=== PATIENT | male | born 1955 | race Caucasian/White ===

== ENCOUNTER 2022-11-16 11:07 | Inpatient (IN) | payer MEDICARE, BC, OTHER ==
[2022-11-16] VITALS (17 sets, daily range): BP systolic 88–140; BP diastolic 45–73
[~2022-11-16] VITALS: Ht 170.2 cm; Wt 97.1 kg
[2022-11-16] MEDS ORDERED: NORepinephrine 8mg/ 250ml NS 250 ML IV ONE (11:16)
[2022-11-16] MEDS ORDERED: NORepinephrine 8mg/ 250ml NS 250 ML IV PRN ×2 (11:25→13:20)
[2022-11-16] MEDS ORDERED: fentaNYL/PF 50MCG/1 ML 2ML syringe IV PRN (11:25)
[2022-11-16] MEDS ORDERED: midazolam 100mg in NS 100ml 100 ML IV PRN ×2 (11:25→11:33)
[2022-11-16] MEDS ORDERED: FENTANYL-0.9 % NACL/PF 100 ML IV PRN (11:25)
[2022-11-16] MEDS ORDERED: midazolam 1 mg/ML 2ml injection IV ONE (11:25)
[2022-11-16] MEDS: FENTANYL-0.9 % NACL/PF 100 ML IV PRN ×2 (12:34→22:27)
[2022-11-16 12:41] LABS: ABG BASE EXCESS -11.7 mmol/L (-2.0-2.0); ABG HCO3 15.7 mmol/L (22.0-26.0); ABG PCO2 (T) 40.8 mmHg (35.0-48.0); ABG PO2 (T) 77.6 mmHg (75.0-100.0); FCOHb 0.5 % (0.0-3.9); FMetHb 0.2 % (0.0-1.5); FO2Hb 93.3 % (94-97); PATIENT TEMPERATURE 36.8; PEEP 12 cm H2O; RESPIRATORY RATE 26 b/min; TIDAL VOLUME 525 mL; TOTAL HEMOGLOBIN 13.7 G/dl (14.0-17.9)
[2022-11-16] MEDS ORDERED: mag hydrox/Alum hydrox/simeth 30ml oral suspension PO PRN (12:50)
[2022-11-16] MEDS ORDERED: magnesium Cl slow-release 64mg tablet PO PRN (12:50)
[2022-11-16] MEDS ORDERED: potassium Cl 40MEQ/1/2NS 520ml 520 ML IV PRN (12:50)
[2022-11-16] MEDS ORDERED: magnesium 4gm in 100ml NS 100 ML IV PRN (12:50)
[2022-11-16] MEDS ORDERED: magnesium hydroxide 30ml (MOM) UD suspension PO PRN (12:50)
[2022-11-16] MEDS ORDERED: potassium Cl 20 mEq SR tablet PO PRN ×2 (12:50)
[2022-11-16] MEDS ORDERED: acetaminophen 325mg tablet PO PRN (12:50)
[2022-11-16] MEDS ORDERED: ondansetron/PF 4mg/2ml inj IV PRN (12:50)
[2022-11-16] MEDS ORDERED: heparin 10,000 units/1 ML INJ IV PRN (13:00)
[2022-11-16] MEDS ORDERED: heparin 25,000 UNIT/250ml bag 250 ML IV PRN ×2 (13:00→13:28)
[2022-11-16] MEDS ORDERED: heparin 10,000 units/1 ML INJ IV ONE (13:00)
[2022-11-16] MEDS ORDERED: VANCOmycin 2,000MG in NS 500ml IV soln IV ONE (13:30)
[2022-11-16 13:38] LABS: BASOPHILS % (AUTO) 0.1 % (0-1); EOSINOPHILS % (AUTO) 0 % (0-6); HEMATOCRIT 40.2 % (42.0-52.0); HEMOGLOBIN 12.6 g/dl (14.0-17.9); LYMPHOCYTES # (AUTO) 0.9 X10'3 (1.1-4.8); MEAN CORPUSCULAR HEMOGLOBIN 29.3 PG (27.0-31.0); MEAN CORPUSCULAR HGB CONC 31.4 g/dL (33.0-36.5); MEAN CORPUSCULAR VOLUME 93.5 FL (78-98); MEAN PLATELET VOLUME 8.5 FL (7.4-10.4); MONOCYTES # (AUTO) 1.5 X10'3 (0-0.9); MONOCYTES % (AUTO) 3.4 % (2-12); NEUTROPHILS % (AUTO) 94.5 % (42-75); PLATELET COUNT 278 X10'3 (140-440); RED CELL DISTRIBUTION WIDTH 14.8 % (11.5-14.5)
[2022-11-16 13:53] LABS: CREATININE 3.12 MG/DL (0.60-1.10); eGFR 20 ML/MIN
--- NOTE | 2022-11-16 14:00 | NUR ---
Patient in room CICU 2016. I have received report from Vernell BOJORQUEZ and had the opportunity to ask questions and assume patient care.
[2022-11-16 14:02] LABS: WHITE BLOOD COUNT 43.4 X10'3 (4.5-11.0)
[2022-11-16 14:07] LABS: ALANINE AMINOTRANSFERASE 103 U/L (12-78); ALBUMIN 3.1 G/DL (3.4-5.0); ALBUMIN/GLOBULIN RATIO 0.8 (1.1-1.5); ALKALINE PHOSPHATASE 125 IU/L (46-116); ANION GAP 17 (8-16); ASPARTATE AMINO TRANSFERASE 244 U/L (10-37); BILIRUBIN,TOTAL 0.6 MG/DL (0.1-1.0); BLOOD UREA NITROGEN 51 MG/DL (7-18); BUN/CREATININE RATIO 16.4 (5.4-32.0); CALCIUM 8.2 MG/DL (8.5-10.1); CHLORIDE 105 MMOL/L (99-107); CREATININE 3.11 MG/DL (0.60-1.10); GLUCOSE 206 MG/DL (70-104); SODIUM 142 MMOL/L (135-145); TOTAL CARBON DIOXIDE 20.4 MMOL/L (24-32); TOTAL PROTEIN 7.1 G/DL (6.4-8.2); eGFR 20 ML/MIN
[2022-11-16 14:11] LABS: APTT 33 SECONDS (22-32); D-DIMER 15.02 MG/L FEU (0-0.50)
[2022-11-16 14:44] LABS: TOTAL CELLS COUNTED 100
[2022-11-16 14:47] LABS: PLATELET ESTIMATE NORMAL
[2022-11-16] MEDS ORDERED: APIX5TAB3 PO (15:12)
[2022-11-16] MEDS ORDERED: AMIO200T27 PO (15:12)
[2022-11-16] MEDS ORDERED: SERT-434 PO (15:12)
[2022-11-16] MEDS ORDERED: METO50TA17 PO (15:12)
[2022-11-16] MEDS ORDERED: ASPI-611 PO (15:12)
[2022-11-16] MEDS ORDERED: AZIT500V18 IV (15:12)
[2022-11-16] MEDS ORDERED: ATOR40TA71 PO (15:12)
[2022-11-16] MEDS ORDERED: VANC1PIG (15:12)
[2022-11-16] MEDS ORDERED: CEFE2FRO IV (15:12)
[2022-11-16] MEDS ORDERED: FURO-150 PO (15:16)
[2022-11-16] MEDS: SODIUM BICARB 150mEq/D5W 1L 1,000 ML IV SCH (15:23)
[2022-11-16] MEDS ORDERED: DILT120C94 PO (15:27)
[2022-11-16] MEDS ORDERED: DILT5VIA IVP (15:27)
[2022-11-16] MEDS ORDERED: [UNRECOGNIZED DRUG - CODE] IV (15:27)
[2022-11-16] MEDS ORDERED: EPINEPHRINE (15:27)
[2022-11-16] MEDS ORDERED: DEXTROSE (15:27)
[2022-11-16 15:28] LABS: CLARITY,URINE CLOUDY (Clear); COLOR,URINE YELLOW (Yellow); GLUCOSE, URINE 100 mg/dl (Neg); KETONES,URINE TRACE mg/dl (Neg); LEUKOCYTE ESTERASE ,URINE NEGATIVE (Neg); NITRITES, URINE NEGATIVE (Neg); OCCULT BLOOD,URINE LARGE (Neg); PROTEIN,URINE 100 mg/dl (Neg); UROBILINOGEN,URINE 0.2 E.U/dL (0.2-1.0)
[2022-11-16] MEDS ORDERED: vancomycin (15:29)
[2022-11-16] MEDS ORDERED: NORE4PLA (15:30)
[2022-11-16] MEDS ORDERED: MIDA1PLA (15:31)
[2022-11-16] MEDS ORDERED: [UNRECOGNIZED DRUG - CODE] IVP (15:32)
[2022-11-16] MEDS ORDERED: ONDA4DIS4 IVP (15:34)
[2022-11-16 15:51] LABS: UA COLLECTION TYPE FOLEY CATH
[2022-11-16 15:54] LABS: RBC,URINE 50-100 /HPF (0-2)
[2022-11-16 15:55] LABS: BACTERIA,URINE 2+ /HPF (Neg); SQUAMOUS EPITHELIAL CELL,UR NONE SEEN /LPF (FEW)
[2022-11-16 15:56] LABS: AMORPHOUS URATES 2+
[2022-11-16] MEDS: pantoprazole 40MG/NS 100ML BAG 100 ML IV SCH (16:17)
[2022-11-16] MEDS: piperacillin/tazo 3.375gm/50ml 50 ML IV SCH (16:17)
[2022-11-16] MEDS: heparin, porcine 5000 units/ml vial SQ SCH (16:17)
[2022-11-16 16:21] LABS: ABG BASE EXCESS -9.4 mmol/L (-2.0-2.0); ABG OXYGEN SATURATION 94.8 % (94-97); ABG PCO2 (T) 38.8 mmHg (35.0-48.0); ABG PO2 (T) 75.1 mmHg (75.0-100.0); FCOHb 0.3 % (0.0-3.9); FMetHb 0.2 % (0.0-1.5); FO2Hb 94.3 % (94-97); PEEP 12 cm H2O; RESPIRATORY RATE 24 b/min; TOTAL HEMOGLOBIN 12.2 G/dl (14.0-17.9)
--- NOTE | 2022-11-16 16:58 | NUR ---
Informed Dr. Peters regarding WBC 43.4, DDimer 15.02, lactic 4.9. No new orders at this time.
--- NOTE | 2022-11-16 17:30 | NUR ---
Luis E Cowan updated over the phone.
--- NOTE | 2022-11-16 18:13 | NUR ---
Problems reprioritized. Patient report given, questions answered & plan of care reviewed with Natalia BOJORQUEZ.
--- NOTE | 2022-11-16 18:30 | NUR ---
I have received report and assumed care of an 67 year old male who was admitted post code blue at an outside facility, thus transferred here. Pt has a relevant medical history including but not limited to stage 3 kidney disease, Afib, CAD, CHF, Covid 19 and a Diabetic. Pt had a PPM placed nearly a week ago. Neurologically the pt is not following commands, does cough/ gag with et suctioning. Left eye is dilated to a 5 rt eye a 2. does not have a startle reflex , pt is on Levophed to keep MAP greater then 60, fentanyl in place for pain control. vasoactive meds via CVL
[2022-11-16 19:58] LABS: OXYGEN SATURATION (MIXED VEN) 86.8 % (60-80); PO2 MIXED VENOUS (TEMP COR) 52.2 mmHg (35-46)
[2022-11-16] MEDS: docusate sod 100mg capsule PO SCH (20:00)
[2022-11-16 20:04] LABS: ABG BASE EXCESS -6.8 mmol/L (-2.0-2.0); ABG HCO3 19.7 mmol/L (22.0-26.0); ABG PCO2 (T) 43.8 mmHg (35.0-48.0); ABG PO2 (T) 87.5 mmHg (75.0-100.0); FCOHb 0.3 % (0.0-3.9); FMetHb 0.2 % (0.0-1.5); FO2Hb 95.5 % (94-97); PATIENT TEMPERATURE 37.3; PEEP 12 cm H2O; RESPIRATORY RATE 24 b/min; TIDAL VOLUME 475 mL; TOTAL HEMOGLOBIN 11.9 G/dl (14.0-17.9)
[2022-11-16 20:05] LABS: BASOPHILS % (AUTO) 0.1 % (0-1); EOSINOPHILS % (AUTO) 0 % (0-6); HEMATOCRIT 34.1 % (42.0-52.0); LYMPHOCYTES # (AUTO) 1.4 X10'3 (1.1-4.8); LYMPHOCYTES % (AUTO) 3.8 % (21-51); MEAN CORPUSCULAR HEMOGLOBIN 29.3 PG (27.0-31.0); MEAN CORPUSCULAR HGB CONC 32.1 g/dL (33.0-36.5); MEAN CORPUSCULAR VOLUME 91.2 FL (78-98); MEAN PLATELET VOLUME 8.5 FL (7.4-10.4); MONOCYTES # (AUTO) 0.8 X10'3 (0-0.9); MONOCYTES % (AUTO) 2.3 % (2-12); NEUTROPHILS # (AUTO) 34.3 X10'3 (1.8-7.7); NEUTROPHILS % (AUTO) 93.8 % (42-75); PLATELET COUNT 231 X10'3 (140-440); RED BLOOD COUNT 3.74 X10'6 (4.70-6.10)
[2022-11-16 20:06] LABS: WHITE BLOOD COUNT 36.6 X10'3 (4.5-11.0)
[2022-11-16 20:19] LABS: ALANINE AMINOTRANSFERASE 96 U/L (12-78); ALBUMIN 2.7 G/DL (3.4-5.0); ALBUMIN/GLOBULIN RATIO 0.7 (1.1-1.5); ALKALINE PHOSPHATASE 94 IU/L (46-116); ANION GAP 14 (8-16); ASPARTATE AMINO TRANSFERASE 195 U/L (10-37); BILIRUBIN,TOTAL 0.6 MG/DL (0.1-1.0); BLOOD UREA NITROGEN 58 MG/DL (7-18); BUN/CREATININE RATIO 17.2 (5.4-32.0); CALCIUM 7.7 MG/DL (8.5-10.1); CHLORIDE 106 MMOL/L (99-107); CREATININE 3.37 MG/DL (0.60-1.10); GLUCOSE 242 MG/DL (70-104); POTASSIUM 5.6 MMOL/L (3.5-5.1); SODIUM 140 MMOL/L (135-145); TOTAL CARBON DIOXIDE 20.5 MMOL/L (24-32); TOTAL PROTEIN 6.4 G/DL (6.4-8.2); eGFR 18 ML/MIN
[2022-11-16] MEDS: apixaban 5mg tablet PO SCH (20:19)
[2022-11-16 20:21] LABS: MAGNESIUM 1.9 MG/DL (1.5-2.4); PHOSPHORUS 6.2 MG/DL (2.3-4.5)
[2022-11-16] MEDS: K and/or MAG REPLACEMENT MC SCH (20:29)
[2022-11-16 20:32] LABS: PLATELET ESTIMATE NORMAL; TOTAL CELLS COUNTED 100
--- NOTE | 2022-11-16 23:05 | NUR ---
Spoke to Dr Peters regarding pts increase in Potassium, low urine output new orders to increase bicarb
[2022-11-16] MEDS ORDERED: glucagon, human recombinant 1mg kit SUBCUT PRN (23:35)
[2022-11-16] MEDS ORDERED: MESSAGE TO PHARMACY PO ONE (23:35)
[2022-11-16] MEDS ORDERED: dextrose 50%-water 50ml dispensing syringe IV PRN ×2 (23:35)
[2022-11-16] MEDS ORDERED: DEXTROSE 15 GM of carb/4 tabs (each vial/BOTTLE has 4 tablets) PO PRN ×2 (23:35)
[2022-11-16 23:54] LABS: HEMOGLOBIN A1C 6.7 % (4.5-6.2)
[2022-11-17] VITALS (35 sets, daily range): BP systolic 93–145; BP diastolic 42–67
[2022-11-17] MEDS: piperacillin/tazo 3.375gm/50ml 50 ML IV SCH ×4 (01:03→23:34)
[2022-11-17] MEDS: heparin, porcine 5000 units/ml vial SQ SCH ×2 (01:03→08:21)
[2022-11-17] MEDS: SODIUM BICARB 150mEq/D5W 1L 1,000 ML IV SCH ×4 (01:03→19:19)
[2022-11-17] MEDS: insulin Lispro (HumaLOG) vial - multi-dose SQ SCH ×4 (02:07→20:07)
[2022-11-17 02:37] LABS: BASOPHILS % (AUTO) 0.1 % (0-1); EOSINOPHILS % (AUTO) 0 % (0-6); HEMATOCRIT 31.5 % (42.0-52.0); HEMOGLOBIN 10.1 g/dl (14.0-17.9); LYMPHOCYTES # (AUTO) 1.5 X10'3 (1.1-4.8); LYMPHOCYTES % (AUTO) 5.3 % (21-51); MEAN CORPUSCULAR HEMOGLOBIN 29.1 PG (27.0-31.0); MEAN CORPUSCULAR VOLUME 90.9 FL (78-98); MEAN PLATELET VOLUME 8.7 FL (7.4-10.4); MONOCYTES # (AUTO) 1.1 X10'3 (0-0.9); MONOCYTES % (AUTO) 3.8 % (2-12); NEUTROPHILS # (AUTO) 26.4 X10'3 (1.8-7.7); NEUTROPHILS % (AUTO) 90.8 % (42-75); PLATELET COUNT 208 X10'3 (140-440); RED BLOOD COUNT 3.46 X10'6 (4.70-6.10); RED CELL DISTRIBUTION WIDTH 14.2 % (11.5-14.5)
[2022-11-17 02:43] LABS: WHITE BLOOD COUNT 29.1 X10'3 (4.5-11.0)
[2022-11-17 03:02] LABS: ALANINE AMINOTRANSFERASE 84 U/L (12-78); ALBUMIN 2.5 G/DL (3.4-5.0); ALBUMIN/GLOBULIN RATIO 0.7 (1.1-1.5); ALKALINE PHOSPHATASE 81 IU/L (46-116); ANION GAP 11 (8-16); ASPARTATE AMINO TRANSFERASE 147 U/L (10-37); BILIRUBIN,TOTAL 0.6 MG/DL (0.1-1.0); BLOOD UREA NITROGEN 62 MG/DL (7-18); BUN/CREATININE RATIO 16.9 (5.4-32.0); CALCIUM 7.6 MG/DL (8.5-10.1); CHLORIDE 105 MMOL/L (99-107); CREATININE 3.66 MG/DL (0.60-1.10); GLUCOSE 253 MG/DL (70-104); MAGNESIUM 1.8 MG/DL (1.5-2.4); PHOSPHORUS 5.9 MG/DL (2.3-4.5); POTASSIUM 4.8 MMOL/L (3.5-5.1); SODIUM 141 MMOL/L (135-145); TOTAL CARBON DIOXIDE 24.8 MMOL/L (24-32); eGFR 17 ML/MIN
[2022-11-17 03:34] LABS: ABG BASE EXCESS -2.1 mmol/L (-2.0-2.0); ABG HCO3 23.5 mmol/L (22.0-26.0); ABG OXYGEN SATURATION 97.7 % (94-97); ABG PCO2 (T) 44.4 mmHg (35.0-48.0); ABG PO2 (T) 110.4 mmHg (75.0-100.0); FCOHb 0.3 % (0.0-3.9); FMetHb 0.2 % (0.0-1.5); FO2Hb 97.2 % (94-97); PATIENT TEMPERATURE 37.4; PEEP 12 cm H2O; RESPIRATORY RATE 24 b/min; TIDAL VOLUME 475 mL; TOTAL HEMOGLOBIN 10.7 G/dl (14.0-17.9)
[2022-11-17] MEDS: FENTANYL-0.9 % NACL/PF 100 ML IV PRN ×4 (05:10→22:42)
--- NOTE | 2022-11-17 06:00 | NUR ---
Patient in room CICU 2014. I have received report from Natalia BOJORQUEZ and had the opportunity to ask questions and assume patient care.
[2022-11-17] MEDS: docusate sod 100mg capsule PO SCH ×2 (07:45→20:00)
[2022-11-17] MEDS: K and/or MAG REPLACEMENT MC SCH ×2 (07:45→20:00)
[2022-11-17] MEDS: sertraline 50mg tablet PO SCH (07:45)
[2022-11-17] MEDS: aspirin 81mg, enteric-coated 1 TAB TABLET.DR PO SCH (07:45)
[2022-11-17] MEDS: atorvastatin 20mg tablet PO SCH (07:45)
[2022-11-17] MEDS: pantoprazole 40MG/NS 100ML BAG 100 ML IV SCH (08:20)
[2022-11-17] MEDS: apixaban 5mg tablet PO SCH ×2 (08:21→20:01)
[2022-11-17] MEDS: amiodarone 200mg tablet PO SCH (08:21)
--- NOTE | 2022-11-17 11:23 | NUR ---
Initial: Pt intubated, transferred from [facility] s/p code blue. Per MD at [facility] pt with sepsis and PNA. Pt with an OGT in place, currently on suction per RN at [facility]. No TF consult at this time, TF recs below for if expected prolonged intubation and to receive nutrition support. LBM unknown. Pt with routine and PRN bowel care available, currently held d/t NPO status. Noted pt with a low Paolo of 11, per EMR no edema and skin is intact. Will continue to follow closely and make recommendations as appropriate. Recommendations: 1) IF TF, continuous Pivot 1.5 with 80 mL/hr goal rate to provide 1920 mL volume/day, 2880 kcal, 180 g protein, and 1457 mL water. Begin at 20 mL/hr and advance by 20 mL Q8H as tolerated to goal rate 2) IF TF, additional water flush per MD in view of h/o CKD III and CHF; monitor serum Na 3) IF TF, prealbumin q Wednesday/; daily scaled weights 4) Routine bowel care Addendum: 11/17/22 at [address] Amended: Links added.
[2022-11-17] MEDS ORDERED: VANCOMYCIN 750MG IV in NS 250 ML IV SCH (14:00)
[2022-11-17] MEDS: mineral oil/petrolatum ophthal oint EACHEYE SCH ×2 (14:10→20:00)
[2022-11-17] MEDS: vancomycin inj 500 MG in normal saline 100ml IV soln 100 ML IV SCH (14:10)
--- NOTE | 2022-11-17 14:54 | NUR ---
Sputum C&S obtained and sent to lab Addendum: 11/17/22 at 1455 by Monika Gonzales RT Amended: Links added.
--- NOTE | 2022-11-17 18:23 | NUR ---
Problems reprioritized. Patient report given, questions answered & plan of care reviewed with Felicity BOJORQUEZ.
--- NOTE | 2022-11-17 18:30 | NUR ---
Patient in room CICU 2014. I have received report from Lyric BOJORQUEZ and had the opportunity to ask questions and assume patient care.
[2022-11-17] MEDS: insulin glargine (Lantus) pen - multi-dose SQ SCH (20:07)
[2022-11-17] MEDS: propofol 1000mg/100ml bottle 100 ML IV SCH (20:58)
[2022-11-17] MEDS: fentaNYL 50mcg/ml PF inj. 2,500 MCG in normal saline 250ml IV soln 200 ML IV SCH (23:55)
[2022-11-18] VITALS (34 sets, daily range): BP systolic 113–140; BP diastolic 50–70
[2022-11-18] MEDS: SODIUM BICARB 150mEq/D5W 1L 1,000 ML IV SCH (01:33)
[2022-11-18] MEDS: mineral oil/petrolatum ophthal oint EACHEYE SCH ×4 (02:12→19:15)
[2022-11-18] MEDS: insulin Lispro (HumaLOG) vial - multi-dose SQ SCH ×3 (02:12→20:14)
[2022-11-18 02:45] LABS: BASOPHILS % (AUTO) 0.1 % (0-1); EOSINOPHILS % (AUTO) 0 % (0-6); HEMATOCRIT 25.4 % (42.0-52.0); HEMOGLOBIN 8.3 g/dl (14.0-17.9); LYMPHOCYTES % (AUTO) 6.1 % (21-51); MEAN CORPUSCULAR HEMOGLOBIN 29.4 PG (27.0-31.0); MEAN CORPUSCULAR HGB CONC 32.7 g/dL (33.0-36.5); MEAN CORPUSCULAR VOLUME 89.9 FL (78-98); MONOCYTES # (AUTO) 0.9 X10'3 (0-0.9); MONOCYTES % (AUTO) 5.7 % (2-12); NEUTROPHILS # (AUTO) 13.8 X10'3 (1.8-7.7); NEUTROPHILS % (AUTO) 88.1 % (42-75); PLATELET COUNT 141 X10'3 (140-440); RED BLOOD COUNT 2.83 X10'6 (4.70-6.10); WHITE BLOOD COUNT 15.7 X10'3 (4.5-11.0)
[2022-11-18 03:08] LABS: ALANINE AMINOTRANSFERASE 99 U/L (12-78); ALBUMIN 2.3 G/DL (3.4-5.0); ALBUMIN/GLOBULIN RATIO 0.7 (1.1-1.5); ALKALINE PHOSPHATASE 59 IU/L (46-116); ANION GAP 7 (8-16); ASPARTATE AMINO TRANSFERASE 94 U/L (10-37); BILIRUBIN,TOTAL 0.9 MG/DL (0.1-1.0); BLOOD UREA NITROGEN 65 MG/DL (7-18); BUN/CREATININE RATIO 15.6 (5.4-32.0); CHLORIDE 102 MMOL/L (99-107); CREATININE 4.17 MG/DL (0.60-1.10); GLUCOSE 180 MG/DL (70-104); MAGNESIUM 1.8 MG/DL (1.5-2.4); PHOSPHORUS 3.5 MG/DL (2.3-4.5); POTASSIUM 3.2 MMOL/L (3.5-5.1); SODIUM 143 MMOL/L (135-145); TOTAL CARBON DIOXIDE 33.7 MMOL/L (24-32); TOTAL PROTEIN 5.7 G/DL (6.4-8.2); TRIGLYCERIDES 84 MG/DL (20-135); eGFR 14 ML/MIN
[2022-11-18 03:45] LABS: ABG BASE EXCESS 6.2 mmol/L (-2.0-2.0); ABG HCO3 28.7 mmol/L (22.0-26.0); ABG OXYGEN SATURATION 93.9 % (94-97); ABG PCO2 (T) 33.7 mmHg (35.0-48.0); ABG PO2 (T) 68.9 mmHg (75.0-100.0); FCOHb 0.3 % (0.0-3.9); FO2Hb 93.6 % (94-97); PATIENT TEMPERATURE 37.2; PEEP 8 cm H2O; RESPIRATORY RATE 24 b/min; TIDAL VOLUME 475 mL; TOTAL HEMOGLOBIN 9.4 G/dl (14.0-17.9)
[2022-11-18] MEDS: fentaNYL 50mcg/ml PF inj. 2,500 MCG in normal saline 250ml IV soln 200 ML IV SCH ×2 (04:44→17:18)
--- NOTE | 2022-11-18 06:20 | NUR ---
Problems reprioritized. Patient report given, questions answered & plan of care reviewed with Annika BOJORQUEZ.
[2022-11-18] MEDS: K and/or MAG REPLACEMENT MC SCH ×2 (08:00→20:00)
[2022-11-18] MEDS: docusate sod 100mg capsule PO SCH (08:00)
[2022-11-18] MEDS: pantoprazole 40MG/NS 100ML BAG 100 ML IV SCH (12:04)
[2022-11-18] MEDS: piperacillin/tazo 3.375gm/50ml 50 ML IV SCH ×3 (12:04→23:24)
[2022-11-18] MEDS: apixaban 5mg tablet PO SCH (12:06)
[2022-11-18] MEDS: aspirin 81mg, enteric-coated 1 TAB TABLET.DR PO SCH (12:06)
[2022-11-18] MEDS: sertraline 50mg tablet PO SCH (12:06)
[2022-11-18] MEDS: amiodarone 200mg tablet PO SCH (12:06)
[2022-11-18] MEDS: atorvastatin 20mg tablet PO SCH (12:06)
[2022-11-18] MEDS: propofol 1000mg/100ml bottle 100 ML IV SCH (12:22)
[2022-11-18 12:47] LABS: TOTAL PROTEIN,URINE RANDOM 86.1 MG/DL
[2022-11-18 13:10] LABS: CLARITY,URINE SLIGHTLY CLOUDY (Clear); COLOR,URINE YELLOW (Yellow); GLUCOSE, URINE NEGATIVE (Neg); KETONES,URINE NEGATIVE (Neg); LEUKOCYTE ESTERASE ,URINE NEGATIVE (Neg); NITRITES, URINE NEGATIVE (Neg); OCCULT BLOOD,URINE MODERATE (Neg); PH,URINE 7.5 (4.8-8.0); PROTEIN,URINE 30 mg/dl (Neg); UROBILINOGEN,URINE 0.2 E.U/dL (0.2-1.0)
--- NOTE | 2022-11-18 13:44 | NUR ---
TF consult: Pt remains intubated, to begin TF per MD. Propofol visualized at bedside to be running at 3.45 mL/hr providing 91 kcal/day, TF recs have been adjusted accordingly. MD states he's okay with water flushes at this time. Will continue to follow closely. Recommendations: 1) Continuous Pivot 1.5 with 80 mL/hr goal rate to provide 1920 mL volume/day, 2880 kcal, 180 g protein, and 1457 mL water 2) Monitor Propofol rate and need to adjust recs 3) Additional 150 mL water flush Q4H; monitor serum Na 4) Prealbumin q Wednesday/; daily scaled weights 5) Routine bowel care Addendum: 11/18/22 at [address] Amended: Links added.
[2022-11-18 14:08] LABS: UA COLLECTION TYPE FOLEY CATH
[2022-11-18 14:15] LABS: BACTERIA,URINE 1+ /HPF (Neg); SQUAMOUS EPITHELIAL CELL,UR FEW /LPF (FEW); WBC CASTS 0-3 /LPF (NEGATIVE); WBC CLUMPS,URINE FEW /HPF (NEGATIVE)
[2022-11-18] MEDS: vancomycin inj 500 MG in normal saline 100ml IV soln 100 ML IV SCH (14:34)
[2022-11-18 15:44] LABS: UA EOSINOPHILS NO EOS /HPF
[2022-11-18] MEDS ORDERED: amiodarone 200mg tablet OGT SCH (16:27)
[2022-11-18] MEDS ORDERED: DEXTROSE 15 GM of carb/4 tabs (each vial/BOTTLE has 4 tablets) OGT PRN ×2 (16:28)
[2022-11-18] MEDS ORDERED: mag hydrox/Alum hydrox/simeth 30ml oral suspension OGT PRN (16:28)
[2022-11-18] MEDS ORDERED: POTASSIUM BICARB 20meq eff tab 20 MEQ TABLET.EFF OGT PRN ×2 (16:29)
[2022-11-18] MEDS ORDERED: magnesium hydroxide 30ml (MOM) UD suspension OGT PRN (16:29)
[2022-11-18] MEDS: apixaban 5mg tablet OGT SCH (19:16)
[2022-11-18] MEDS: docusate sodium 100mg/10ml UD cup OGT SCH (19:16)
[2022-11-18] MEDS: insulin glargine (Lantus) pen - multi-dose SQ SCH (20:14)
[2022-11-19] VITALS (35 sets, daily range): BP systolic 121–177; BP diastolic 64–102
[2022-11-19] MEDS: propofol 1000mg/100ml bottle 100 ML IV SCH (01:09)
[2022-11-19] MEDS: fentaNYL 50mcg/ml PF inj. 2,500 MCG in normal saline 250ml IV soln 200 ML IV SCH (01:10)
[2022-11-19] MEDS: insulin Lispro (HumaLOG) vial - multi-dose SQ SCH (02:14)
[2022-11-19] MEDS: mineral oil/petrolatum ophthal oint EACHEYE SCH ×4 (02:15→20:25)
[2022-11-19 02:40] LABS: HEMATOCRIT 27.3 % (42.0-52.0); HEMOGLOBIN 8.9 g/dl (14.0-17.9); RED CELL DISTRIBUTION WIDTH 14.1 % (11.5-14.5)
[2022-11-19 02:43] LABS: BASOPHILS % (AUTO) 0.1 % (0-1); EOSINOPHILS % (AUTO) 0.2 % (0-6); LYMPHOCYTES # (AUTO) 1.6 X10'3 (1.1-4.8); LYMPHOCYTES % (AUTO) 10.5 % (21-51); MEAN CORPUSCULAR HEMOGLOBIN 29.3 PG (27.0-31.0); MEAN CORPUSCULAR HGB CONC 32.6 g/dL (33.0-36.5); MEAN CORPUSCULAR VOLUME 89.9 FL (78-98); MEAN PLATELET VOLUME 9.1 FL (7.4-10.4); MONOCYTES % (AUTO) 6.8 % (2-12); NEUTROPHILS # (AUTO) 12.6 X10'3 (1.8-7.7); NEUTROPHILS % (AUTO) 82.4 % (42-75); PLATELET COUNT 152 X10'3 (140-440); RED BLOOD COUNT 3.04 X10'6 (4.70-6.10); WHITE BLOOD COUNT 15.3 X10'3 (4.5-11.0)
[2022-11-19 02:57] LABS: ALANINE AMINOTRANSFERASE 88 U/L (12-78); ALBUMIN 2.4 G/DL (3.4-5.0); ALBUMIN/GLOBULIN RATIO 0.7 (1.1-1.5); ALKALINE PHOSPHATASE 62 IU/L (46-116); ANION GAP 11 (8-16); ASPARTATE AMINO TRANSFERASE 82 U/L (10-37); BILIRUBIN,TOTAL 0.8 MG/DL (0.1-1.0); BLOOD UREA NITROGEN 68 MG/DL (7-18); BUN/CREATININE RATIO 16.1 (5.4-32.0); CALCIUM 8.3 MG/DL (8.5-10.1); CHLORIDE 103 MMOL/L (99-107); CREATININE 4.22 MG/DL (0.60-1.10); GLUCOSE 141 MG/DL (70-104); PHOSPHORUS 5.4 MG/DL (2.3-4.5); POTASSIUM 3.5 MMOL/L (3.5-5.1); PREALBUMIN 16.2 MG/DL (19-36); SODIUM 146 MMOL/L (135-145); TOTAL CARBON DIOXIDE 32.4 MMOL/L (24-32); TOTAL PROTEIN 5.9 G/DL (6.4-8.2); eGFR 14 ML/MIN
[2022-11-19 03:34] LABS: TOTAL CELLS COUNTED 100
[2022-11-19 03:35] LABS: PLATELET ESTIMATE NORMAL; POIKILOCYTOSIS FEW; POLYCHROMASIA FEW; SMUDGE CELLS FEW
[2022-11-19 03:54] LABS: ABG BASE EXCESS 5.1 mmol/L (-2.0-2.0); ABG HCO3 28.5 mmol/L (22.0-26.0); ABG OXYGEN SATURATION 93.5 % (94-97); ABG PCO2 (T) 36.8 mmHg (35.0-48.0); ABG PO2 (T) 67.1 mmHg (75.0-100.0); FCOHb 0.3 % (0.0-3.9); FO2Hb 93.2 % (94-97); PATIENT TEMPERATURE 36.9; PEEP 8 cm H2O; RESPIRATORY RATE 18 b/min; TIDAL VOLUME 475 mL; TOTAL HEMOGLOBIN 8.9 G/dl (14.0-17.9)
--- NOTE | 2022-11-19 06:15 | NUR ---
Problems reprioritized. Patient report given, questions answered & plan of care reviewed with Lj BOJORQUEZ.
[2022-11-19] MEDS: pantoprazole 40MG/NS 100ML BAG 100 ML IV SCH (07:47)
[2022-11-19] MEDS: K and/or MAG REPLACEMENT MC SCH ×2 (08:00→20:00)
[2022-11-19] MEDS: docusate sodium 100mg/10ml UD cup OGT SCH ×2 (08:14→20:18)
[2022-11-19] MEDS: aspirin 81mg tab.chew OGT SCH (08:14)
[2022-11-19] MEDS: apixaban 5mg tablet OGT SCH ×2 (08:14→20:18)
[2022-11-19] MEDS: piperacillin/tazo 3.375gm/50ml 50 ML IV SCH ×2 (08:14→16:29)
[2022-11-19] MEDS: atorvastatin 20mg tablet OGT SCH (08:14)
[2022-11-19] MEDS: sertraline 50mg tablet OGT SCH (08:15)
[2022-11-19] MEDS: hydrALAZINE 20mg/ml inj. IV PRN ×2 (08:51→18:03)
[2022-11-19] MEDS: insulin regular, human U-100 3ml vial - multi-dose SQ SCH ×3 (09:21→20:30)
[2022-11-19] MEDS: labetalol 20mg/4ml (5mg/ml) syringe IV PRN (09:35)
[2022-11-19] MEDS ORDERED: VANCOMYCIN LEVEL IV ONE (13:30)
[2022-11-19] MEDS: metolazone 2.5mg tablet OGT SCH ×2 (13:42→20:18)
[2022-11-19] MEDS: furosemide inj 100 MG in normal saline 100ml IV soln 90 ML IV SCH ×2 (13:53→22:10)
[2022-11-19] MEDS: vancomycin inj 500 MG in normal saline 100ml IV soln 100 ML IV SCH (14:05)
--- NOTE | 2022-11-19 15:06 | NUR ---
F/u: TF just started this morning, currently running at 20 mL/hr. Noted patient's ht changed to 67" in EMR which is likely more accurate given patient's presentation. TC to clinical pharmacist who confirms patient's ht and new weight was obtained. TF recs below have been adjusted accordingly as to not overfeed on the vent, updated EMR and d/w RN. Per EMR pt receiving Propofol at 6.9 mL/hr providing 182 kcal/day. Still no documented BM since admit. Pt receiving routine bowel care. Will continue to follow. Recommendations: 1) Given Propofol at 6.9 mL/hr (182 kcal/day) and product shortage of Vital HP, continuous Pivot 1.5 with 45 mL/hr goal rate to provide 1080 mL volume/day, 1620 kcal, 101 g protein, and 820 mL water 2) Monitor Propofol rate and need to adjust recs 3) Additional 150 mL water flush Q4H; monitor serum Na 4) Prealbumin q Wednesday/; daily scaled weights 5) Routine bowel care Addendum: 11/19/22 at [address] Amended: Links added.
--- NOTE | 2022-11-19 18:14 | NUR ---
Problems reprioritized. Patient report given, questions answered & plan of care reviewed with Sunshine BOJORQUEZ.
[2022-11-19 20:31] LABS: ALANINE AMINOTRANSFERASE 84 U/L (12-78); ALBUMIN 2.7 G/DL (3.4-5.0); ALBUMIN/GLOBULIN RATIO 0.6 (1.1-1.5); ALKALINE PHOSPHATASE 78 IU/L (46-116); ANION GAP 10 (8-16); ASPARTATE AMINO TRANSFERASE 71 U/L (10-37); BILIRUBIN,TOTAL 1.1 MG/DL (0.1-1.0); BLOOD UREA NITROGEN 71 MG/DL (7-18); BUN/CREATININE RATIO 17.3 (5.4-32.0); CALCIUM 8.6 MG/DL (8.5-10.1); CHLORIDE 102 MMOL/L (99-107); GLUCOSE 175 MG/DL (70-104); MAGNESIUM 2.1 MG/DL (1.5-2.4); PHOSPHORUS 5.6 MG/DL (2.3-4.5); POTASSIUM 3.5 MMOL/L (3.5-5.1); SODIUM 145 MMOL/L (135-145); TOTAL CARBON DIOXIDE 32.6 MMOL/L (24-32); TOTAL PROTEIN 6.9 G/DL (6.4-8.2); eGFR 15 ML/MIN
[2022-11-19] MEDS: insulin glargine (Lantus) pen - multi-dose SQ SCH (20:32)
[2022-11-20] VITALS (35 sets, daily range): BP systolic 113–171; BP diastolic 58–95
[2022-11-20] MEDS: piperacillin/tazo 3.375gm/50ml 50 ML IV SCH ×3 (01:46→16:39)
[2022-11-20 02:49] LABS: BASOPHILS % (AUTO) 0.1 % (0-1); EOSINOPHILS # (AUTO) 0.1 X10'3 (0-0.9); EOSINOPHILS % (AUTO) 0.3 % (0-6); HEMATOCRIT 32.4 % (42.0-52.0); HEMOGLOBIN 10.8 g/dl (14.0-17.9); LYMPHOCYTES # (AUTO) 1.4 X10'3 (1.1-4.8); LYMPHOCYTES % (AUTO) 8.1 % (21-51); MEAN CORPUSCULAR HEMOGLOBIN 30.2 PG (27.0-31.0); MEAN CORPUSCULAR HGB CONC 33.5 g/dL (33.0-36.5); MEAN CORPUSCULAR VOLUME 90.1 FL (78-98); MEAN PLATELET VOLUME 8.4 FL (7.4-10.4); MONOCYTES # (AUTO) 1.2 X10'3 (0-0.9); MONOCYTES % (AUTO) 7.3 % (2-12); NEUTROPHILS # (AUTO) 14.4 X10'3 (1.8-7.7); NEUTROPHILS % (AUTO) 84.2 % (42-75); PLATELET COUNT 211 X10'3 (140-440); RED BLOOD COUNT 3.59 X10'6 (4.70-6.10); RED CELL DISTRIBUTION WIDTH 14.1 % (11.5-14.5); WHITE BLOOD COUNT 17.1 X10'3 (4.5-11.0)
[2022-11-20] MEDS: amiodarone/D5 360MG/200ML BAG 200 ML IV SCH ×4 (02:55→21:07)
[2022-11-20] MEDS ORDERED: amiodarone 150mg/dext, iso-os 100 ML IV ONE (02:55)
[2022-11-20] MEDS: mineral oil/petrolatum ophthal oint EACHEYE SCH ×4 (02:57→19:50)
[2022-11-20 03:05] LABS: ALANINE AMINOTRANSFERASE 74 U/L (12-78); ALBUMIN 2.8 G/DL (3.4-5.0); ALBUMIN/GLOBULIN RATIO 0.7 (1.1-1.5); ALKALINE PHOSPHATASE 82 IU/L (46-116); ANION GAP 10 (8-16); ASPARTATE AMINO TRANSFERASE 65 U/L (10-37); BILIRUBIN,TOTAL 1.2 MG/DL (0.1-1.0); BLOOD UREA NITROGEN 73 MG/DL (7-18); CALCIUM 8.7 MG/DL (8.5-10.1); CHLORIDE 100 MMOL/L (99-107); CREATININE 4.05 MG/DL (0.60-1.10); GLUCOSE 175 MG/DL (70-104); MAGNESIUM 2.1 MG/DL (1.5-2.4); PHOSPHORUS 5.2 MG/DL (2.3-4.5); POTASSIUM 3.5 MMOL/L (3.5-5.1); SODIUM 145 MMOL/L (135-145); TOTAL CARBON DIOXIDE 35.4 MMOL/L (24-32); TOTAL PROTEIN 7.1 G/DL (6.4-8.2); TRIGLYCERIDES 117 MG/DL (20-135); eGFR 15 ML/MIN
[2022-11-20] MEDS: insulin regular, human U-100 3ml vial - multi-dose SQ SCH ×4 (03:10→20:33)
[2022-11-20] MEDS: propofol 1000mg/100ml bottle 100 ML IV SCH (03:57)
[2022-11-20 03:59] LABS: ABG BASE EXCESS 6.5 mmol/L (-2.0-2.0); ABG HCO3 31.5 mmol/L (22.0-26.0); ABG OXYGEN SATURATION 94.9 % (94-97); ABG PCO2 (T) 48.9 mmHg (35.0-48.0); ABG PO2 (T) 80.8 mmHg (75.0-100.0); ALLEN'S TEST Modified; FCOHb 0.6 % (0.0-3.9); FMetHb 0.1 % (0.0-1.5); FO2Hb 94.2 % (94-97); PATIENT TEMPERATURE 37.7; PEEP 8 cm H2O; RESPIRATORY RATE 16 b/min; TIDAL VOLUME 475 mL; TOTAL HEMOGLOBIN 12.1 G/dl (14.0-17.9)
[2022-11-20] MEDS: K and/or MAG REPLACEMENT MC SCH ×2 (08:00→20:05)
[2022-11-20] MEDS: pantoprazole 40MG/NS 100ML BAG 100 ML IV SCH (08:08)
[2022-11-20] MEDS: docusate sodium 100mg/10ml UD cup OGT SCH ×2 (08:11→19:51)
[2022-11-20] MEDS: aspirin 81mg tab.chew OGT SCH (08:11)
[2022-11-20] MEDS: sertraline 50mg tablet OGT SCH (08:11)
[2022-11-20] MEDS: atorvastatin 20mg tablet OGT SCH (08:12)
[2022-11-20] MEDS: apixaban 5mg tablet OGT SCH ×2 (08:12→19:51)
[2022-11-20 08:39] LABS: ALANINE AMINOTRANSFERASE 76 U/L (12-78); ALBUMIN/GLOBULIN RATIO 0.6 (1.1-1.5); ALKALINE PHOSPHATASE 82 IU/L (46-116); ANION GAP 9 (8-16); ASPARTATE AMINO TRANSFERASE 61 U/L (10-37); BILIRUBIN,TOTAL 1.1 MG/DL (0.1-1.0); BLOOD UREA NITROGEN 71 MG/DL (7-18); BUN/CREATININE RATIO 17.3 (5.4-32.0); CALCIUM 9.3 MG/DL (8.5-10.1); CHLORIDE 100 MMOL/L (99-107); CREATININE 4.11 MG/DL (0.60-1.10); GLUCOSE 140 MG/DL (70-104); MAGNESIUM 2.1 MG/DL (1.5-2.4); PHOSPHORUS 5.2 MG/DL (2.3-4.5); POTASSIUM 3.3 MMOL/L (3.5-5.1); SODIUM 144 MMOL/L (135-145); TOTAL CARBON DIOXIDE 34.9 MMOL/L (24-32); TOTAL PROTEIN 7.7 G/DL (6.4-8.2); eGFR 15 ML/MIN
[2022-11-20] MEDS: metolazone 2.5mg tablet OGT SCH ×2 (09:21→20:05)
[2022-11-20] MEDS: furosemide inj 100 MG in normal saline 100ml IV soln 90 ML IV SCH ×2 (09:30→14:25)
[2022-11-20] MEDS ORDERED: potassium Cl 20mEq/100mL bag 100 ML IV SCH (09:35)
[2022-11-20] MEDS ORDERED: potassium Cl 40MEQ/1/2NS 520ml 520 ML IV PRN (10:20)
[2022-11-20] MEDS ORDERED: digoxin 250mcg/ml 2ml ampule IV ONE ×3 (10:25→22:30)
--- NOTE | 2022-11-20 12:09 | NUR ---
Problems reprioritized. Patient report given, questions answered & plan of care reviewed with Michelle BOJORQUEZ.
--- NOTE | 2022-11-20 12:15 | NUR ---
Patient in room CICU 2014. I have received report from Lj BOJORQUEZ and had the opportunity to ask questions and assume patient care.
[2022-11-20] MEDS: vancomycin inj 500 MG in normal saline 100ml IV soln 100 ML IV SCH (14:54)
[2022-11-20 15:35] LABS: ALANINE AMINOTRANSFERASE 63 U/L (12-78); ALBUMIN 2.8 G/DL (3.4-5.0); ALBUMIN/GLOBULIN RATIO 0.7 (1.1-1.5); ALKALINE PHOSPHATASE 80 IU/L (46-116); ANION GAP 8 (8-16); ASPARTATE AMINO TRANSFERASE 50 U/L (10-37); BLOOD UREA NITROGEN 75 MG/DL (7-18); BUN/CREATININE RATIO 19.6 (5.4-32.0); CALCIUM 8.7 MG/DL (8.5-10.1); CHLORIDE 101 MMOL/L (99-107); CREATININE 3.82 MG/DL (0.60-1.10); GLUCOSE 201 MG/DL (70-104); MAGNESIUM 2.1 MG/DL (1.5-2.4); PHOSPHORUS 4.1 MG/DL (2.3-4.5); POTASSIUM 3.4 MMOL/L (3.5-5.1); SODIUM 144 MMOL/L (135-145); eGFR 16 ML/MIN
[2022-11-20] MEDS ORDERED: potassium Cl 20 mEq SR tablet PO PRN (18:00)
--- NOTE | 2022-11-20 18:25 | NUR ---
When turning pt has emesis of light green bile N/g checked for placement abd soft with bowel sounds min residual even when connected to suction When stimulated pts eye up in head no movment of extremeties does not follow HR increases to 130 with elevated b/p uo 400 ml/hr on lasix gtt Jose Angel cpap trial for couple hours then rr rate decreased and placed back on rate
[2022-11-20] MEDS: insulin glargine (Lantus) pen - multi-dose SQ SCH (20:35)
[2022-11-20 22:07] LABS: ALANINE AMINOTRANSFERASE 64 U/L (12-78); ALBUMIN/GLOBULIN RATIO 0.6 (1.1-1.5); ALKALINE PHOSPHATASE 90 IU/L (46-116); ANION GAP 9 (8-16); ASPARTATE AMINO TRANSFERASE 43 U/L (10-37); BILIRUBIN,TOTAL 1.1 MG/DL (0.1-1.0); BLOOD UREA NITROGEN 82 MG/DL (7-18); BUN/CREATININE RATIO 19.9 (5.4-32.0); CALCIUM 9.5 MG/DL (8.5-10.1); CHLORIDE 98 MMOL/L (99-107); CREATININE 4.13 MG/DL (0.60-1.10); GLUCOSE 173 MG/DL (70-104); MAGNESIUM 2.3 MG/DL (1.5-2.4); POTASSIUM 3.8 MMOL/L (3.5-5.1); SODIUM 144 MMOL/L (135-145); TOTAL CARBON DIOXIDE 37.2 MMOL/L (24-32); TOTAL PROTEIN 7.9 G/DL (6.4-8.2); eGFR 15 ML/MIN
[2022-11-20] MEDS: labetalol 20mg/4ml (5mg/ml) syringe IV PRN (22:37)
[2022-11-21] VITALS (33 sets, daily range): BP systolic 95–200; BP diastolic 57–121
[2022-11-21] MEDS: mineral oil/petrolatum ophthal oint EACHEYE SCH ×4 (02:00→20:58)
[2022-11-21 02:41] LABS: BASOPHILS % (AUTO) 0.3 % (0-1); EOSINOPHILS # (AUTO) 0.1 X10'3 (0-0.9); EOSINOPHILS % (AUTO) 0.5 % (0-6); HEMATOCRIT 36.3 % (42.0-52.0); LYMPHOCYTES # (AUTO) 1.5 X10'3 (1.1-4.8); LYMPHOCYTES % (AUTO) 8.7 % (21-51); MEAN CORPUSCULAR HGB CONC 33.1 g/dL (33.0-36.5); MEAN CORPUSCULAR VOLUME 90.5 FL (78-98); MEAN PLATELET VOLUME 8.5 FL (7.4-10.4); MONOCYTES # (AUTO) 1.7 X10'3 (0-0.9); NEUTROPHILS # (AUTO) 14.1 X10'3 (1.8-7.7); NEUTROPHILS % (AUTO) 80.5 % (42-75); PLATELET COUNT 257 X10'3 (140-440); RED BLOOD COUNT 4.01 X10'6 (4.70-6.10); RED CELL DISTRIBUTION WIDTH 14.1 % (11.5-14.5); WHITE BLOOD COUNT 17.5 X10'3 (4.5-11.0)
[2022-11-21 02:54] LABS: ALBUMIN 3.2 G/DL (3.4-5.0); ANION GAP 8 (8-16); BLOOD UREA NITROGEN 83 MG/DL (7-18); BUN/CREATININE RATIO 19.7 (5.4-32.0); CALCIUM 9.8 MG/DL (8.5-10.1); CHLORIDE 99 MMOL/L (99-107); CREATININE 4.22 MG/DL (0.60-1.10); GLUCOSE 170 MG/DL (70-104); MAGNESIUM 2.3 MG/DL (1.5-2.4); PHOSPHORUS 4.7 MG/DL (2.3-4.5); POTASSIUM 4.1 MMOL/L (3.5-5.1); SODIUM 144 MMOL/L (135-145); TOTAL CARBON DIOXIDE 37.4 MMOL/L (24-32); TOTAL PROTEIN 8.3 G/DL (6.4-8.2); eGFR 14 ML/MIN
[2022-11-21 02:55] LABS: ALANINE AMINOTRANSFERASE 59 U/L (12-78); ALBUMIN/GLOBULIN RATIO 0.6 (1.1-1.5); ALKALINE PHOSPHATASE 87 IU/L (46-116); ASPARTATE AMINO TRANSFERASE 47 U/L (10-37)
[2022-11-21] MEDS: amiodarone/D5 360MG/200ML BAG 200 ML IV SCH ×4 (03:11→20:55)
[2022-11-21] MEDS: insulin regular, human U-100 3ml vial - multi-dose SQ SCH ×4 (03:27→21:02)
[2022-11-21 04:03] LABS: ABG BASE EXCESS 11.6 mmol/L (-2.0-2.0); ABG HCO3 36.7 mmol/L (22.0-26.0); ABG OXYGEN SATURATION 97.4 % (94-97); ABG PCO2 (T) 52.4 mmHg (35.0-48.0); ABG PO2 (T) 104.4 mmHg (75.0-100.0); ALLEN'S TEST Modified; FCOHb 0.4 % (0.0-3.9); FMetHb 0.1 % (0.0-1.5); FO2Hb 96.9 % (94-97); PATIENT TEMPERATURE 38.1; PEEP 8 cm H2O; RESPIRATORY RATE 16 b/min; TIDAL VOLUME 475 mL; TOTAL HEMOGLOBIN 13.2 G/dl (14.0-17.9)
[2022-11-21 04:13] LABS: NUCLEATED RED BLOOD CELLS 1 /100WBC (0-0); TOTAL CELLS COUNTED 100
[2022-11-21 04:14] LABS: PLATELET ESTIMATE NORMAL
--- NOTE | 2022-11-21 06:30 | NUR ---
Patient in room CICU 2014. I have received report from Sunshine BOJORQUEZ and had the opportunity to ask questions and assume patient care.
[2022-11-21] MEDS: apixaban 5mg tablet OGT SCH ×2 (08:05→20:55)
[2022-11-21] MEDS: atorvastatin 20mg tablet OGT SCH (08:05)
[2022-11-21] MEDS: docusate sodium 100mg/10ml UD cup OGT SCH ×2 (08:05→20:55)
[2022-11-21] MEDS: aspirin 81mg tab.chew OGT SCH (08:06)
[2022-11-21] MEDS: sertraline 50mg tablet OGT SCH (08:06)
[2022-11-21] MEDS: pantoprazole 40MG/NS 100ML BAG 100 ML IV SCH (08:09)
[2022-11-21] MEDS: piperacillin/tazo 3.375gm/50ml 50 ML IV SCH ×2 (08:17→20:55)
[2022-11-21] MEDS: K and/or MAG REPLACEMENT MC SCH ×2 (08:18→20:00)
[2022-11-21] MEDS: furosemide inj 100 MG in normal saline 100ml IV soln 90 ML IV SCH (08:41)
--- NOTE | 2022-11-21 11:19 | NUR ---
MD visit Dr. Peters to see pt. Plan reviewed, Lasix d/c's and other orders received.
--- NOTE | 2022-11-21 13:18 | NUR ---
Family Sister and niece to see pt. Sister says he had a similar episode in [place] in 2020 - where he was unresponsive for a couple days and then gradually awoke.
[2022-11-21] MEDS: vancomycin inj 500 MG in normal saline 100ml IV soln 100 ML IV SCH (15:31)
--- NOTE | 2022-11-21 16:56 | NUR ---
Family Pts , Fawn, and son Chapo to see pt. Pt not responding to them but BP elevates. Pts conditions discussed with son and . Pt positioned to comfort with pillows.
--- NOTE | 2022-11-21 18:21 | NUR ---
Problems reprioritized. Patient report given, questions answered & plan of care reviewed with Lidia BOJORQUEZ.
--- NOTE | 2022-11-21 18:30 | NUR ---
Patient in room CICU 2014. I have received report from Williams BOJORQUEZ and had the opportunity to ask questions and assume patient care.
[2022-11-21] MEDS: acetaminophen 325mg/10.15ml oral unit dose solution OGT PRN (20:57)
[2022-11-21] MEDS: insulin glargine (Lantus) pen - multi-dose SQ SCH (21:01)
[2022-11-21 22:15] LABS: ALANINE AMINOTRANSFERASE 51 U/L (12-78); ALBUMIN 3.2 G/DL (3.4-5.0); ALBUMIN/GLOBULIN RATIO 0.6 (1.1-1.5); ALKALINE PHOSPHATASE 88 IU/L (46-116); ANION GAP 14 (8-16); ASPARTATE AMINO TRANSFERASE 32 U/L (10-37); BILIRUBIN,TOTAL 0.8 MG/DL (0.1-1.0); BLOOD UREA NITROGEN 104 MG/DL (7-18); BUN/CREATININE RATIO 23.6 (5.4-32.0); CALCIUM 9.9 MG/DL (8.5-10.1); CHLORIDE 98 MMOL/L (99-107); GLUCOSE 241 MG/DL (70-104); MAGNESIUM 2.7 MG/DL (1.5-2.4); PHOSPHORUS 4.1 MG/DL (2.3-4.5); POTASSIUM 3.5 MMOL/L (3.5-5.1); SODIUM 145 MMOL/L (135-145); TOTAL CARBON DIOXIDE 33.1 MMOL/L (24-32); TOTAL PROTEIN 8.4 G/DL (6.4-8.2); eGFR 14 ML/MIN
[2022-11-22] VITALS (31 sets, daily range): BP systolic 103–176; BP diastolic 61–107
[2022-11-22] MEDS: insulin regular, human U-100 3ml vial - multi-dose SQ SCH ×3 (03:24→14:25)
[2022-11-22] MEDS: mineral oil/petrolatum ophthal oint EACHEYE SCH ×4 (03:25→19:08)
--- NOTE | 2022-11-22 03:26 | NUR ---
0200 vitals omitted due to daylight savings time happening.
[2022-11-22] MEDS: amiodarone/D5 360MG/200ML BAG 200 ML IV SCH ×4 (03:27→21:39)
[2022-11-22 04:12] LABS: BASOPHILS % (AUTO) 0.1 % (0-1); EOSINOPHILS % (AUTO) 0.1 % (0-6); HEMOGLOBIN 12.2 g/dl (14.0-17.9); LYMPHOCYTES # (AUTO) 1.6 X10'3 (1.1-4.8); LYMPHOCYTES % (AUTO) 7.8 % (21-51); MEAN CORPUSCULAR HEMOGLOBIN 29.4 PG (27.0-31.0); MEAN CORPUSCULAR HGB CONC 32.1 g/dL (33.0-36.5); MEAN CORPUSCULAR VOLUME 91.4 FL (78-98); MEAN PLATELET VOLUME 8.9 FL (7.4-10.4); MONOCYTES # (AUTO) 2.1 X10'3 (0-0.9); MONOCYTES % (AUTO) 10.4 % (2-12); NEUTROPHILS # (AUTO) 16.4 X10'3 (1.8-7.7); NEUTROPHILS % (AUTO) 81.6 % (42-75); PLATELET COUNT 276 X10'3 (140-440); RED BLOOD COUNT 4.15 X10'6 (4.70-6.10); RED CELL DISTRIBUTION WIDTH 14.1 % (11.5-14.5); WHITE BLOOD COUNT 20.1 X10'3 (4.5-11.0)
[2022-11-22 04:29] LABS: ABG BASE EXCESS 10.4 mmol/L (-2.0-2.0); ABG HCO3 32.2 mmol/L (22.0-26.0); ABG OXYGEN SATURATION 96.3 % (94-97); ABG PCO2 (T) 33.6 mmHg (35.0-48.0); ABG PO2 (T) 77.9 mmHg (75.0-100.0); ALLEN'S TEST POSITIVE; FCOHb 0.3 % (0.0-3.9); FMetHb 0.1 % (0.0-1.5); FO2Hb 95.9 % (94-97); PATIENT TEMPERATURE 37.2; PEEP 5 cm H2O; RESPIRATORY RATE 16 b/min; TIDAL VOLUME 475 mL; TOTAL HEMOGLOBIN 13.7 G/dl (14.0-17.9)
[2022-11-22 04:31] LABS: ALANINE AMINOTRANSFERASE 48 U/L (12-78); ALBUMIN 3.2 G/DL (3.4-5.0); ALBUMIN/GLOBULIN RATIO 0.6 (1.1-1.5); ALKALINE PHOSPHATASE 88 IU/L (46-116); ANION GAP 10 (8-16); ASPARTATE AMINO TRANSFERASE 32 U/L (10-37); BILIRUBIN,TOTAL 0.8 MG/DL (0.1-1.0); BLOOD UREA NITROGEN 115 MG/DL (7-18); BUN/CREATININE RATIO 26.8 (5.4-32.0); CALCIUM 9.8 MG/DL (8.5-10.1); CHLORIDE 99 MMOL/L (99-107); CREATININE 4.29 MG/DL (0.60-1.10); GLUCOSE 228 MG/DL (70-104); MAGNESIUM 2.8 MG/DL (1.5-2.4); PHOSPHORUS 3.6 MG/DL (2.3-4.5); POTASSIUM 3.2 MMOL/L (3.5-5.1); SODIUM 145 MMOL/L (135-145); TOTAL CARBON DIOXIDE 35.9 MMOL/L (24-32); TOTAL PROTEIN 8.2 G/DL (6.4-8.2); eGFR 14 ML/MIN
[2022-11-22] MEDS: potassium Cl 40MEQ/270ML bag 270 ML IV PRN (04:55)
--- NOTE | 2022-11-22 06:26 | NUR ---
Problems reprioritized. Patient report given, questions answered & plan of care reviewed with Lyric BOJORQUEZ.
[2022-11-22 06:44] LABS: PLATELET ESTIMATE NORMAL; TOTAL CELLS COUNTED 100
[2022-11-22 06:45] LABS: NUCLEATED RED BLOOD CELLS 1 /100WBC (0-0)
[2022-11-22 06:46] LABS: GIANT PLATELET FEW; LARGE PLATELETS FEW; POLYCHROMASIA FEW
[2022-11-22] MEDS: docusate sodium 100mg/10ml UD cup OGT SCH ×2 (07:09→19:08)
[2022-11-22] MEDS: K and/or MAG REPLACEMENT MC SCH ×2 (07:10→19:36)
[2022-11-22] MEDS: sertraline 50mg tablet OGT SCH (07:17)
[2022-11-22] MEDS: atorvastatin 20mg tablet OGT SCH (07:17)
[2022-11-22] MEDS: piperacillin/tazo 3.375gm/50ml 50 ML IV SCH ×2 (07:17→19:12)
[2022-11-22] MEDS: aspirin 81mg tab.chew OGT SCH (07:17)
[2022-11-22] MEDS: pantoprazole 40MG/NS 100ML BAG 100 ML IV SCH (07:17)
[2022-11-22] MEDS: apixaban 5mg tablet OGT SCH ×2 (07:17→19:12)
--- NOTE | 2022-11-22 09:30 | NUR ---
Dr. Peters informed of pt having torsades last night. No new orders at this time. Sister and neice at the bedside, Dr. Peters discussed prognosis with patient.
[2022-11-22] MEDS: vancomycin inj 500 MG in normal saline 100ml IV soln 100 ML IV SCH (14:27)
--- NOTE | 2022-11-22 18:07 | NUR ---
Problems reprioritized. Patient report given, questions answered & plan of care reviewed with Natalia BOJORQUEZ.
[2022-11-22] MEDS: acetaminophen 325mg/10.15ml oral unit dose solution OGT PRN (18:37)
--- NOTE | 2022-11-22 18:45 | NUR ---
I have received report and assumed care of pt
[2022-11-22] MEDS: insulin glargine (Lantus) pen - multi-dose SQ SCH (20:15)
[2022-11-22] MEDS: insulin Lispro (HumaLOG) vial - multi-dose SQ SCH (20:17)
[2022-11-22] MEDS: propofol 1000mg/100ml bottle 100 ML IV SCH (21:47)
[2022-11-23] VITALS (34 sets, daily range): BP systolic 100–165; BP diastolic 49–99
[2022-11-23] MEDS: insulin Lispro (HumaLOG) vial - multi-dose SQ SCH (02:45)
[2022-11-23] MEDS: mineral oil/petrolatum ophthal oint EACHEYE SCH ×4 (02:45→19:56)
[2022-11-23 03:05] LABS: ABG BASE EXCESS 6.2 mmol/L (-2.0-2.0); ABG HCO3 28.4 mmol/L (22.0-26.0); ABG OXYGEN SATURATION 93.8 % (94-97); ABG PCO2 (T) 33.7 mmHg (35.0-48.0); ABG PO2 (T) 65.4 mmHg (75.0-100.0); ALLEN'S TEST POSITIVE; FCOHb 0.3 % (0.0-3.9); FMetHb 0.3 % (0.0-1.5); FO2Hb 93.2 % (94-97); PATIENT TEMPERATURE 37.3; PEEP 5 cm H2O; RESPIRATORY RATE 16 b/min; TIDAL VOLUME 475 mL; TOTAL HEMOGLOBIN 13.4 G/dl (14.0-17.9)
[2022-11-23 03:14] LABS: TRIGLYCERIDES 88 MG/DL (20-135)
[2022-11-23] MEDS: amiodarone/D5 360MG/200ML BAG 200 ML IV SCH ×2 (03:34→15:11)
[2022-11-23 03:48] LABS: APTT 31 SECONDS (22-32)
[2022-11-23 03:51] LABS: ALANINE AMINOTRANSFERASE 67 U/L (12-78); ALBUMIN 2.7 G/DL (3.4-5.0); ALBUMIN/GLOBULIN RATIO 0.5 (1.1-1.5); ALKALINE PHOSPHATASE 92 IU/L (46-116); ANION GAP 22 (8-16); ASPARTATE AMINO TRANSFERASE 66 U/L (10-37); BILIRUBIN,TOTAL 0.6 MG/DL (0.1-1.0); BLOOD UREA NITROGEN 114 MG/DL (7-18); BUN/CREATININE RATIO 29.7 (5.4-32.0); CALCIUM 8.5 MG/DL (8.5-10.1); CHLORIDE 100 MMOL/L (99-107); CREATININE 3.84 MG/DL (0.60-1.10); GLUCOSE 174 MG/DL (70-104); MAGNESIUM 2.5 MG/DL (1.5-2.4); PHOSPHORUS 4.1 MG/DL (2.3-4.5); SODIUM 149 MMOL/L (135-145); TOTAL CARBON DIOXIDE 27.2 MMOL/L (24-32); TOTAL PROTEIN 7.7 G/DL (6.4-8.2); eGFR 16 ML/MIN
[2022-11-23 03:59] LABS: POTASSIUM 2.7 MMOL/L (3.5-5.1)
[2022-11-23] MEDS: potassium Cl 40MEQ/270ML bag 270 ML IV PRN ×2 (04:59→13:11)
--- NOTE | 2022-11-23 06:15 | NUR ---
fecal containment device placed per md orders pt tolerated well.
--- NOTE | 2022-11-23 06:30 | NUR ---
Patient in room CICU 2014. I have received report from MARYELLEN Joe and had the opportunity to ask questions and assume patient care.
[2022-11-23 06:59] LABS: BASOPHILS # (AUTO) 0.1 X10'3 (0-0.2); BASOPHILS % (AUTO) 0.3 % (0-1); EOSINOPHILS # (AUTO) 0.2 X10'3 (0-0.9); HEMATOCRIT 36.3 % (42.0-52.0); HEMOGLOBIN 11.6 g/dl (14.0-17.9); LYMPHOCYTES # (AUTO) 2.1 X10'3 (1.1-4.8); LYMPHOCYTES % (AUTO) 9.2 % (21-51); MEAN CORPUSCULAR HEMOGLOBIN 29.1 PG (27.0-31.0); MEAN CORPUSCULAR HGB CONC 31.9 g/dL (33.0-36.5); MEAN CORPUSCULAR VOLUME 91.1 FL (78-98); MEAN PLATELET VOLUME 8.9 FL (7.4-10.4); MONOCYTES # (AUTO) 2.6 X10'3 (0-0.9); MONOCYTES % (AUTO) 11.2 % (2-12); NEUTROPHILS # (AUTO) 18.1 X10'3 (1.8-7.7); NEUTROPHILS % (AUTO) 78.3 % (42-75); PLATELET COUNT 285 X10'3 (140-440); RED BLOOD COUNT 3.98 X10'6 (4.70-6.10); RED CELL DISTRIBUTION WIDTH 14.8 % (11.5-14.5); WHITE BLOOD COUNT 23.1 X10'3 (4.5-11.0)
[2022-11-23] MEDS: aspirin 81mg tab.chew OGT SCH (07:40)
[2022-11-23] MEDS: atorvastatin 20mg tablet OGT SCH (07:40)
[2022-11-23] MEDS: docusate sodium 100mg/10ml UD cup OGT SCH ×2 (07:41→19:55)
[2022-11-23] MEDS: pantoprazole 40MG/NS 100ML BAG 100 ML IV SCH (07:41)
[2022-11-23] MEDS: sertraline 50mg tablet OGT SCH (07:41)
[2022-11-23] MEDS: apixaban 5mg tablet OGT SCH ×2 (07:41→19:55)
[2022-11-23] MEDS: insulin regular, human U-100 3ml vial - multi-dose SQ SCH ×3 (07:49→20:56)
[2022-11-23] MEDS: piperacillin/tazo 3.375gm/50ml 50 ML IV SCH ×2 (08:15→19:56)
[2022-11-23] MEDS: K and/or MAG REPLACEMENT MC SCH ×2 (08:33→20:00)
[2022-11-23 09:12] LABS: TOTAL CELLS COUNTED 100
[2022-11-23 09:13] LABS: PLATELET ESTIMATE NORMAL
--- NOTE | 2022-11-23 11:46 | NUR ---
F/u 11/23: Pt remains intubated tolerating TF at goal GRV WNL. Noted serum Na 149mmol/L this AM per EMR; free water to increase to 250ml Q4H updated recs below. Pt Propofol temporarily held this AM per RN previously at 3.087ml/hr providing 81 kcals/day. LBM 11/23 w/ colace held per EMR. Will monitor for further nutrition intervention needs. Recommendations: 1) Given Propofol at 6.9 mL/hr (182 kcal/day) and product shortage of Vital HP, continuous Pivot 1.5 with 45 mL/hr goal rate to provide 1080 mL volume/day, 1620 kcal, 101 g protein, and 820 mL water 2) Monitor Propofol rate and need to adjust recs 3) Additional 250mL water flush Q4H per MD; monitor serum Na 4) Prealbumin q Wednesday/; daily scaled weights 5) Routine bowel care Addendum: 11/23/22 at [address] Amended: Links added.
[2022-11-23] MEDS: vancomycin inj 500 MG in normal saline 100ml IV soln 100 ML IV SCH (15:13)
[2022-11-23] MEDS: propofol 1000mg/100ml bottle 100 ML IV SCH (17:45)
--- NOTE | 2022-11-23 18:20 | NUR ---
Patient in room CICU 2014. I have received report from MARYELLEN Degroot and had the opportunity to ask questions and assume patient care.
--- NOTE | 2022-11-23 18:24 | NUR ---
Problems reprioritized. Patient report given, questions answered & plan of care reviewed with MARYELLEN Sahni.
[2022-11-23] MEDS: insulin glargine (Lantus) pen - multi-dose SQ SCH (20:57)
[2022-11-24] VITALS (34 sets, daily range): BP systolic 97–167; BP diastolic 58–108
[2022-11-24] MEDS: mineral oil/petrolatum ophthal oint EACHEYE SCH ×4 (02:43→19:54)
[2022-11-24] MEDS: insulin regular, human U-100 3ml vial - multi-dose SQ SCH ×4 (02:48→20:05)
[2022-11-24 03:08] LABS: BASOPHILS # (AUTO) 0.1 X10'3 (0-0.2); BASOPHILS % (AUTO) 0.4 % (0-1); EOSINOPHILS # (AUTO) 0.4 X10'3 (0-0.9); EOSINOPHILS % (AUTO) 2.1 % (0-6); HEMATOCRIT 37.5 % (42.0-52.0); HEMOGLOBIN 12.3 g/dl (14.0-17.9); LYMPHOCYTES # (AUTO) 2.3 X10'3 (1.1-4.8); LYMPHOCYTES % (AUTO) 11.4 % (21-51); MEAN CORPUSCULAR HEMOGLOBIN 29.7 PG (27.0-31.0); MEAN CORPUSCULAR HGB CONC 32.8 g/dL (33.0-36.5); MEAN CORPUSCULAR VOLUME 90.7 FL (78-98); MEAN PLATELET VOLUME 9.4 FL (7.4-10.4); MONOCYTES # (AUTO) 2.2 X10'3 (0-0.9); MONOCYTES % (AUTO) 10.7 % (2-12); NEUTROPHILS # (AUTO) 15.5 X10'3 (1.8-7.7); NEUTROPHILS % (AUTO) 75.4 % (42-75); PLATELET COUNT 298 X10'3 (140-440); RED BLOOD COUNT 4.13 X10'6 (4.70-6.10); RED CELL DISTRIBUTION WIDTH 14.7 % (11.5-14.5); WHITE BLOOD COUNT 20.5 X10'3 (4.5-11.0)
[2022-11-24] MEDS: propofol 1000mg/100ml bottle 100 ML IV SCH ×2 (03:09→22:11)
[2022-11-24] MEDS: amiodarone/D5 360MG/200ML BAG 200 ML IV SCH ×5 (03:09→22:11)
[2022-11-24 03:19] LABS: ALANINE AMINOTRANSFERASE 153 U/L (12-78); ALBUMIN 3.1 G/DL (3.4-5.0); ALBUMIN/GLOBULIN RATIO 0.6 (1.1-1.5); ALKALINE PHOSPHATASE 136 IU/L (46-116); ANION GAP 14 (8-16); ASPARTATE AMINO TRANSFERASE 130 U/L (10-37); BILIRUBIN,TOTAL 0.5 MG/DL (0.1-1.0); BLOOD UREA NITROGEN 128 MG/DL (7-18); BUN/CREATININE RATIO 32.2 (5.4-32.0); CALCIUM 9.7 MG/DL (8.5-10.1); CHLORIDE 110 MMOL/L (99-107); CREATININE 3.98 MG/DL (0.60-1.10); GLUCOSE 154 MG/DL (70-104); POTASSIUM 3.6 MMOL/L (3.5-5.1); SODIUM 153 MMOL/L (135-145); TOTAL CARBON DIOXIDE 29.4 MMOL/L (24-32); TOTAL PROTEIN 8.2 G/DL (6.4-8.2); eGFR 15 ML/MIN
[2022-11-24 03:21] LABS: MAGNESIUM 3.2 MG/DL (1.5-2.4)
[2022-11-24 04:06] LABS: ABG BASE EXCESS 2.6 mmol/L (-2.0-2.0); ABG OXYGEN SATURATION 96.8 % (94-97); ALLEN'S TEST POSITIVE; FMetHb 0.3 % (0.0-1.5); FO2Hb 96.5 % (94-97); PATIENT TEMPERATURE 36.9; PEEP 5 cm H2O; RESPIRATORY RATE 16 b/min; TIDAL VOLUME 475 mL; TOTAL HEMOGLOBIN 13.5 G/dl (14.0-17.9)
--- NOTE | 2022-11-24 06:15 | NUR ---
Problems reprioritized. Patient report given, questions answered & plan of care reviewed with MARYELLEN Degroot.
--- NOTE | 2022-11-24 06:30 | NUR ---
Patient in room CICU 2014. I have received report from MARYELLEN Sahni and had the opportunity to ask questions and assume patient care.
[2022-11-24] MEDS: K and/or MAG REPLACEMENT MC SCH ×2 (08:00→20:00)
[2022-11-24] MEDS: docusate sodium 100mg/10ml UD cup OGT SCH ×2 (08:00→19:50)
[2022-11-24] MEDS: pantoprazole 40MG/NS 100ML BAG 100 ML IV SCH (08:21)
[2022-11-24] MEDS: atorvastatin 20mg tablet OGT SCH (08:21)
[2022-11-24] MEDS: aspirin 81mg tab.chew OGT SCH (08:21)
[2022-11-24] MEDS: sertraline 50mg tablet OGT SCH (08:21)
[2022-11-24] MEDS: apixaban 5mg tablet OGT SCH ×2 (08:22→19:50)
[2022-11-24] MEDS: piperacillin/tazo 3.375gm/50ml 50 ML IV SCH ×2 (08:57→19:50)
[2022-11-24] MEDS ORDERED: normal saline 1000ml 1,000 ML IV SCH (11:45)
[2022-11-24] MEDS: vancomycin inj 500 MG in normal saline 100ml IV soln 100 ML IV SCH (14:28)
--- NOTE | 2022-11-24 18:15 | NUR ---
Problems reprioritized. Patient report given, questions answered & plan of care reviewed with MARYELLEN Nesbitt.
--- NOTE | 2022-11-24 18:15 | NUR ---
Patient in room CICU 2014. I have received report from MARYELLEN Degroot and had the opportunity to ask questions and assume patient care.
[2022-11-24 19:44] LABS: VANCOMYCIN,RANDOM 18.1 UG/ML
[2022-11-24] MEDS: insulin glargine (Lantus) pen - multi-dose SQ SCH (20:06)
[2022-11-25] VITALS (33 sets, daily range): BP systolic 90–180; BP diastolic 57–101
[2022-11-25] MEDS: insulin regular, human U-100 3ml vial - multi-dose SQ SCH ×4 (02:20→20:11)
[2022-11-25] MEDS: mineral oil/petrolatum ophthal oint EACHEYE SCH ×4 (02:22→19:50)
[2022-11-25 02:41] LABS: BASOPHILS # (AUTO) 0.1 X10'3 (0-0.2); BASOPHILS % (AUTO) 0.4 % (0-1); EOSINOPHILS # (AUTO) 0.2 X10'3 (0-0.9); EOSINOPHILS % (AUTO) 1.2 % (0-6); HEMATOCRIT 33.2 % (42.0-52.0); HEMOGLOBIN 10.7 g/dl (14.0-17.9); LYMPHOCYTES # (AUTO) 1.8 X10'3 (1.1-4.8); LYMPHOCYTES % (AUTO) 9.3 % (21-51); MEAN CORPUSCULAR HEMOGLOBIN 29.1 PG (27.0-31.0); MEAN PLATELET VOLUME 9.1 FL (7.4-10.4); MONOCYTES # (AUTO) 1.6 X10'3 (0-0.9); MONOCYTES % (AUTO) 8.4 % (2-12); NEUTROPHILS # (AUTO) 15.4 X10'3 (1.8-7.7); NEUTROPHILS % (AUTO) 80.7 % (42-75); PLATELET COUNT 265 X10'3 (140-440); RED BLOOD COUNT 3.65 X10'6 (4.70-6.10); RED CELL DISTRIBUTION WIDTH 14.6 % (11.5-14.5); WHITE BLOOD COUNT 19.1 X10'3 (4.5-11.0)
[2022-11-25 02:49] LABS: ALANINE AMINOTRANSFERASE 122 U/L (12-78); ALBUMIN 2.5 G/DL (3.4-5.0); ALBUMIN/GLOBULIN RATIO 0.6 (1.1-1.5); ALKALINE PHOSPHATASE 118 IU/L (46-116); ANION GAP 11 (8-16); ASPARTATE AMINO TRANSFERASE 84 U/L (10-37); BILIRUBIN,TOTAL 0.4 MG/DL (0.1-1.0); BLOOD UREA NITROGEN 110 MG/DL (7-18); BUN/CREATININE RATIO 33.5 (5.4-32.0); CALCIUM 8.3 MG/DL (8.5-10.1); CHLORIDE 116 MMOL/L (99-107); CREATININE 3.28 MG/DL (0.60-1.10); GLUCOSE 129 MG/DL (70-104); MAGNESIUM 2.6 MG/DL (1.5-2.4); SODIUM 154 MMOL/L (135-145); TOTAL CARBON DIOXIDE 26.7 MMOL/L (24-32); TOTAL PROTEIN 6.9 G/DL (6.4-8.2); TRIGLYCERIDES 72 MG/DL (20-135); eGFR 19 ML/MIN
[2022-11-25 03:22] LABS: ABG BASE EXCESS 3.8 mmol/L (-2.0-2.0); ABG HCO3 27.4 mmol/L (22.0-26.0); ABG OXYGEN SATURATION 92.6 % (94-97); ABG PCO2 (T) 38.4 mmHg (35.0-48.0); ABG PO2 (T) 65.5 mmHg (75.0-100.0); FCOHb 0.3 % (0.0-3.9); FMetHb 0.1 % (0.0-1.5); FO2Hb 92.2 % (94-97); PATIENT TEMPERATURE 37.4; PEEP 5 cm H2O; RESPIRATORY RATE 16 b/min; TIDAL VOLUME 475 mL; TOTAL HEMOGLOBIN 13.4 G/dl (14.0-17.9)
[2022-11-25] MEDS: potassium Cl 40MEQ/270ML bag 270 ML IV PRN (03:35)
[2022-11-25] MEDS: amiodarone/D5 360MG/200ML BAG 200 ML IV SCH ×4 (04:15→16:19)
--- NOTE | 2022-11-25 06:13 | NUR ---
Problems reprioritized. Patient report given, questions answered & plan of care reviewed with MARYELLEN Degroot.
[2022-11-25] MEDS: aspirin 81mg tab.chew OGT SCH (07:43)
[2022-11-25] MEDS: atorvastatin 20mg tablet OGT SCH (07:43)
[2022-11-25] MEDS: apixaban 5mg tablet OGT SCH ×2 (07:43→19:50)
[2022-11-25] MEDS: pantoprazole 40MG/NS 100ML BAG 100 ML IV SCH (07:43)
[2022-11-25] MEDS: sertraline 50mg tablet OGT SCH (07:43)
[2022-11-25] MEDS: docusate sodium 100mg/10ml UD cup OGT SCH ×2 (07:43→19:49)
[2022-11-25] MEDS: K and/or MAG REPLACEMENT MC SCH ×2 (08:00→20:00)
[2022-11-25] MEDS ORDERED: epiNEPHrine 0.1mg/ml 10ml syringe ONE (08:00)
[2022-11-25] MEDS ORDERED: sodium bicarbonate (8.4%) 1 mEq/ml syringe ONE (08:00)
[2022-11-25] MEDS ORDERED: sod chloride 0.9% 10ml flush syringe IV ONE (08:00)
[2022-11-25] MEDS: piperacillin/tazo 3.375gm/50ml 50 ML IV SCH ×2 (08:04→19:49)
--- NOTE | 2022-11-25 10:15 | NUR ---
Discussed pt in clinical rounds with Dr Peters. manager local has spoken with pt's son and he is expected to be here at 1130 hrs to discuss plan of care with Dr Peters. Normal saline IV fluid discontinued due to pt's increasing serum sodium despite increased free water flushes. Sputum culture ordered. Discussed pt's IJ and Infection Control's request to have the IJ replaced.
--- NOTE | 2022-11-25 10:43 | NUR ---
Dr Sweet rounded on pt. He wants to continue the IV fluid normal saline @ 50 mLs/hr. Water flush increased to 300 mL q 4hr.
[2022-11-25] MEDS ORDERED: VANCOMYCIN LEVEL IV ONE (13:30)
[2022-11-25 14:02] LABS: POTASSIUM 3.4 MMOL/L (3.5-5.1); VANCOMYCIN,TROUGH 14.5 UG/ML (6.0-14.0)
[2022-11-25] MEDS: vancomycin inj 500 MG in normal saline 100ml IV soln 100 ML IV SCH (15:08)
[2022-11-25] MEDS: POTASSIUM BICARB 20meq eff tab 20 MEQ TABLET.EFF OGT PRN ×2 (15:44→19:50)
--- NOTE | 2022-11-25 18:15 | NUR ---
Problems reprioritized. Patient report given, questions answered & plan of care reviewed with MARYELLEN Nesbitt.
--- NOTE | 2022-11-25 18:21 | NUR ---
Patient in room CICU 2014. I have received report from MARYELLEN Degroot and had the opportunity to ask questions and assume patient care.
[2022-11-25] MEDS: dexmedetomidin/NS 400mcg/100ml 100 ML IV SCH (19:00)
[2022-11-25] MEDS: insulin glargine (Lantus) pen - multi-dose SQ SCH (20:12)
[2022-11-26] VITALS (31 sets, daily range): BP systolic 75–125; BP diastolic 43–82
[2022-11-26] MEDS: mineral oil/petrolatum ophthal oint EACHEYE SCH ×4 (02:00→19:56)
[2022-11-26 02:56] LABS: BASOPHILS # (AUTO) 0.1 X10'3 (0-0.2); BASOPHILS % (AUTO) 0.2 % (0-1); EOSINOPHILS # (AUTO) 0.6 X10'3 (0-0.9); EOSINOPHILS % (AUTO) 2.4 % (0-6); HEMATOCRIT 34.2 % (42.0-52.0); HEMOGLOBIN 10.9 g/dl (14.0-17.9); LYMPHOCYTES # (AUTO) 1.5 X10'3 (1.1-4.8); LYMPHOCYTES % (AUTO) 5.5 % (21-51); MEAN CORPUSCULAR HEMOGLOBIN 29.2 PG (27.0-31.0); MEAN CORPUSCULAR VOLUME 91.4 FL (78-98); MEAN PLATELET VOLUME 9.5 FL (7.4-10.4); MONOCYTES # (AUTO) 1.7 X10'3 (0-0.9); MONOCYTES % (AUTO) 6.1 % (2-12); NEUTROPHILS # (AUTO) 23.5 X10'3 (1.8-7.7); NEUTROPHILS % (AUTO) 85.8 % (42-75); PLATELET COUNT 268 X10'3 (140-440); RED BLOOD COUNT 3.74 X10'6 (4.70-6.10); RED CELL DISTRIBUTION WIDTH 14.8 % (11.5-14.5)
[2022-11-26 03:05] LABS: WHITE BLOOD COUNT 27.4 X10'3 (4.5-11.0)
[2022-11-26 03:08] LABS: ALANINE AMINOTRANSFERASE 223 U/L (12-78); ALBUMIN 2.7 G/DL (3.4-5.0); ALBUMIN/GLOBULIN RATIO 0.6 (1.1-1.5); ALKALINE PHOSPHATASE 136 IU/L (46-116); ANION GAP 9 (8-16); ASPARTATE AMINO TRANSFERASE 210 U/L (10-37); BILIRUBIN,TOTAL 0.5 MG/DL (0.1-1.0); BLOOD UREA NITROGEN 101 MG/DL (7-18); BUN/CREATININE RATIO 29.4 (5.4-32.0); CALCIUM 9.3 MG/DL (8.5-10.1); CHLORIDE 115 MMOL/L (99-107); CREATININE 3.43 MG/DL (0.60-1.10); GLUCOSE 109 MG/DL (70-104); MAGNESIUM 2.8 MG/DL (1.5-2.4); SODIUM 152 MMOL/L (135-145); TOTAL CARBON DIOXIDE 28.3 MMOL/L (24-32); TOTAL PROTEIN 7.6 G/DL (6.4-8.2); TRIGLYCERIDES 51 MG/DL (20-135); eGFR 18 ML/MIN
[2022-11-26] MEDS: amiodarone/D5 360MG/200ML BAG 200 ML IV SCH ×4 (03:17→16:23)
[2022-11-26 04:04] LABS: PLATELET ESTIMATE NORMAL; TOTAL CELLS COUNTED 100
[2022-11-26] MEDS: dexmedetomidin/NS 400mcg/100ml 100 ML IV SCH ×2 (05:43→18:27)
[2022-11-26 06:21] LABS: ABG BASE EXCESS 2.8 mmol/L (-2.0-2.0); ABG HCO3 25.4 mmol/L (22.0-26.0); ABG OXYGEN SATURATION 96.7 % (94-97); ABG PCO2 (T) 33.5 mmHg (35.0-48.0); ABG PO2 (T) 84.3 mmHg (75.0-100.0); ALLEN'S TEST Yes; FCOHb 0.3 % (0.0-3.9); FMetHb 0.1 % (0.0-1.5); FO2Hb 96.3 % (94-97); PATIENT TEMPERATURE 37.8; PEEP 5 cm H2O; RESPIRATORY RATE 16 b/min; TIDAL VOLUME 475 mL; TOTAL HEMOGLOBIN 12.3 G/dl (14.0-17.9)
--- NOTE | 2022-11-26 06:28 | NUR ---
Problems reprioritized. Patient report given, questions answered & plan of care reviewed with MARYELLEN Ko.
[2022-11-26] MEDS: K and/or MAG REPLACEMENT MC SCH ×2 (08:00→20:00)
--- NOTE | 2022-11-26 08:17 | NUR ---
Blood cultures and urine sent to lab
[2022-11-26 08:28] LABS: CLARITY,URINE CLOUDY (Clear); COLOR,URINE YELLOW (Yellow); GLUCOSE, URINE NEGATIVE (Neg); KETONES,URINE NEGATIVE (Neg); LEUKOCYTE ESTERASE ,URINE NEGATIVE (Neg); NITRITES, URINE NEGATIVE (Neg); OCCULT BLOOD,URINE LARGE (Neg); PH,URINE 5.5 (4.8-8.0); PROTEIN,URINE TRACE mg/dl (Neg); UROBILINOGEN,URINE 0.2 E.U/dL (0.2-1.0)
[2022-11-26 08:36] LABS: UA COLLECTION TYPE FOLEY CATH
[2022-11-26 08:39] LABS: MUCUS STRANDS FEW /LPF (Neg); SQUAMOUS EPITHELIAL CELL,UR FEW /LPF (FEW)
[2022-11-26 08:41] LABS: RBC,URINE 50-100 /HPF (0-2)
[2022-11-26 08:42] LABS: BACTERIA,URINE 1+ /HPF (Neg); WBC,URINE 0-4 /HPF (0-4)
[2022-11-26 08:43] LABS: CELLULAR CAST 0-4 /LPF (NEGATIVE)
[2022-11-26 08:44] LABS: TRANSITIONAL EPI CELLS,URINE FEW /HPF
[2022-11-26 08:45] LABS: WBC CLUMPS,URINE FEW /HPF (NEGATIVE)
[2022-11-26] MEDS: apixaban 5mg tablet OGT SCH (09:17)
[2022-11-26] MEDS: piperacillin/tazo 3.375gm/50ml 50 ML IV SCH ×2 (09:50→19:56)
[2022-11-26] MEDS: pantoprazole 40MG/NS 100ML BAG 100 ML IV SCH (09:50)
[2022-11-26] MEDS: aspirin 81mg tab.chew OGT SCH (09:51)
[2022-11-26] MEDS: docusate sodium 100mg/10ml UD cup OGT SCH ×2 (09:51→19:55)
[2022-11-26] MEDS: sertraline 50mg tablet OGT SCH (09:51)
[2022-11-26] MEDS: atorvastatin 20mg tablet OGT SCH (09:51)
--- NOTE | 2022-11-26 13:47 | NUR ---
F/u 11/26: Pt remains intubated tolerating TF at goal GRV WNL. Pt pending trach/PEG tomorrow to be NPO tonight per roving department supervisor at rounds. Updated TF recs below given Propofol now off w/ Vital HP restocked; pending TF consult. Will monitor for further nutrition intervention needs. Recommendations: 1) Given Propofol now off and Vital HP restocked, continuous TF using Vital HP at 75 mL/hr goal rate to provide 1800mL volume/day, 1800 kcal, 157g protein, and 1505mL water 2) Additional 250mL water flush Q4H per MD; monitor serum Na 3) Prealbumin q Wednesday/; daily scaled weights 4) Routine bowel care Addendum: 11/26/22 at [address] Amended: Links added.
--- NOTE | 2022-11-26 14:14 | NUR ---
TF Consult: see recs below. Recommendations: 1) Given Propofol now off and Vital HP restocked, continuous TF using Vital HP at 75 mL/hr goal rate to provide 1800mL volume/day, 1800 kcal, 157g protein, and 1505mL water 2) Additional 250mL water flush Q4H per MD; monitor serum Na 3) Prealbumin q Wednesday/; daily scaled weights 4) Routine bowel care Addendum: 11/26/22 at [address] Amended: Links added.
--- NOTE | 2022-11-26 14:28 | NUR ---
PRESSURE ULCER EDUCATION: DEFINITION: A pressure ulcer is an area of skin that breaks down when you stay in one position too long. The constant pressure against the skin reduces the blood flow to that area and the affected tissue dies. CAUSES: "Being bedridden or in a wheelchair "Fragile skin "Having a chronic condition, such as diabetes or vascular disease "Inability to move certain parts of your body without assistance "Older age "Incontinence of urine or stool SYMPTOMS: "A reddened area that DOES NOT turn white when pressed on - this can be the beginning of a pressure ulcer "A blister, deep sore or a crater - these can be advanced pressure ulcers FIRST AID: "Relieve the pressure on this area "Keep the area clean and dry "Call your primary doctor if you see any of the above symptoms "DO NOT massage the area "DO NOT use a donut shaped or ring shaped pillow- these actually interfere with the blood flow and cause complications PREVENTION: "Check for pressure ulcers everyday "Change position at least every two hours to relieve pressure "Use items that help relieve pressure- pillows, sheepskin, foam padding, and powders. "Keep skin clean and dry "Eat healthy well balanced meals "Exercise daily IF YOU SEE ANY OF THESE SYMPTOMS WHILE IN THE HOSPITAL - TELL YOUR NURSE IMMEDIATELY. IF YOU SEE ANY OF THESE SYMPTOMS WHILE AT HOME OR HAVE ANY QUESTIONS OR CONCERNS ABOUT PRESSURE ULCERS - CALL YOUR PRIMARY DOCTOR IMMEDIATELY. Addendum: 11/26/22 at 1428 by Shital Williamson RN Amended: Links added.
[2022-11-26] MEDS: vancomycin inj 500 MG in normal saline 100ml IV soln 100 ML IV SCH (16:26)
--- NOTE | 2022-11-26 18:24 | NUR ---
Patient in room CICU 2014. I have received report from MARYELLEN Ko and had the opportunity to ask questions and assume patient care.
[2022-11-26] MEDS: insulin regular, human U-100 3ml vial - multi-dose SQ SCH (20:16)
[2022-11-26] MEDS: insulin glargine (Lantus) pen - multi-dose SQ SCH (20:16)
[2022-11-27] VITALS (32 sets, daily range): BP systolic 70–170; BP diastolic 46–107
[2022-11-27] MEDS: mineral oil/petrolatum ophthal oint EACHEYE SCH ×4 (02:08→20:30)
[2022-11-27] MEDS: amiodarone/D5 360MG/200ML BAG 200 ML IV SCH ×4 (02:30→14:12)
[2022-11-27 02:39] LABS: BASOPHILS # (AUTO) 0.1 X10'3 (0-0.2); BASOPHILS % (AUTO) 0.2 % (0-1); EOSINOPHILS # (AUTO) 0.5 X10'3 (0-0.9); EOSINOPHILS % (AUTO) 1.6 % (0-6); HEMATOCRIT 33.7 % (42.0-52.0); HEMOGLOBIN 10.5 g/dl (14.0-17.9); LYMPHOCYTES # (AUTO) 1.6 X10'3 (1.1-4.8); LYMPHOCYTES % (AUTO) 5.6 % (21-51); MEAN CORPUSCULAR HEMOGLOBIN 28.5 PG (27.0-31.0); MEAN CORPUSCULAR HGB CONC 31.2 g/dL (33.0-36.5); MEAN CORPUSCULAR VOLUME 91.2 FL (78-98); MEAN PLATELET VOLUME 9.5 FL (7.4-10.4); MONOCYTES # (AUTO) 1.6 X10'3 (0-0.9); MONOCYTES % (AUTO) 5.6 % (2-12); PLATELET COUNT 275 X10'3 (140-440); RED BLOOD COUNT 3.69 X10'6 (4.70-6.10); RED CELL DISTRIBUTION WIDTH 14.7 % (11.5-14.5)
[2022-11-27 02:59] LABS: WHITE BLOOD COUNT 28.7 X10'3 (4.5-11.0)
[2022-11-27 03:00] LABS: ALANINE AMINOTRANSFERASE 314 U/L (12-78); ALBUMIN 2.6 G/DL (3.4-5.0); ALBUMIN/GLOBULIN RATIO 0.5 (1.1-1.5); ALKALINE PHOSPHATASE 151 IU/L (46-116); ANION GAP 13 (8-16); ASPARTATE AMINO TRANSFERASE 234 U/L (10-37); BILIRUBIN,TOTAL 0.5 MG/DL (0.1-1.0); BLOOD UREA NITROGEN 103 MG/DL (7-18); BUN/CREATININE RATIO 31.8 (5.4-32.0); CALCIUM 9.3 MG/DL (8.5-10.1); CHLORIDE 116 MMOL/L (99-107); CREATININE 3.24 MG/DL (0.60-1.10); GLUCOSE 84 MG/DL (70-104); MAGNESIUM 2.8 MG/DL (1.5-2.4); POTASSIUM 3.6 MMOL/L (3.5-5.1); TOTAL CARBON DIOXIDE 25.6 MMOL/L (24-32); TOTAL PROTEIN 7.5 G/DL (6.4-8.2); eGFR 19 ML/MIN
[2022-11-27 03:03] LABS: SODIUM 155 MMOL/L (135-145)
[2022-11-27 03:26] LABS: ABG BASE EXCESS 0.9 mmol/L (-2.0-2.0); ABG HCO3 23.6 mmol/L (22.0-26.0); ABG OXYGEN SATURATION 96.4 % (94-97); ABG PO2 (T) 85.2 mmHg (75.0-100.0); FCOHb 0.3 % (0.0-3.9); FMetHb 0.1 % (0.0-1.5); PATIENT TEMPERATURE 37.4; PEEP 5 cm H2O; RESPIRATORY RATE 16 b/min; TIDAL VOLUME 475 mL; TOTAL HEMOGLOBIN 11.9 G/dl (14.0-17.9)
[2022-11-27] MEDS ORDERED: desmopressin inj. 4 MCG in normal saline 100ml IV soln 100 ML IV ONE (05:55)
--- NOTE | 2022-11-27 06:18 | NUR ---
Problems reprioritized. Patient report given, questions answered & plan of care reviewed with MARYELLEN Ko.
[2022-11-27 07:52] LABS: PLATELET ESTIMATE NORMAL; TOTAL CELLS COUNTED 100
[2022-11-27] MEDS: K and/or MAG REPLACEMENT MC SCH ×2 (08:00→20:00)
[2022-11-27] MEDS: docusate sodium 100mg/10ml UD cup OGT SCH ×2 (08:00→20:00)
[2022-11-27] MEDS: dexmedetomidin/NS 400mcg/100ml 100 ML IV SCH ×2 (08:11→11:02)
[2022-11-27] MEDS: atorvastatin 20mg tablet OGT SCH (08:19)
[2022-11-27] MEDS: aspirin 81mg tab.chew OGT SCH (08:19)
[2022-11-27] MEDS: piperacillin/tazo 3.375gm/50ml 50 ML IV SCH ×2 (08:19→20:30)
[2022-11-27] MEDS: sertraline 50mg tablet OGT SCH (08:19)
[2022-11-27] MEDS: pantoprazole 40MG/NS 100ML BAG 100 ML IV SCH (08:20)
[2022-11-27 13:24] LABS: SODIUM,URINE RANDOM 66 MEQ/L
[2022-11-27 13:38] LABS: OSMOLALITY UA 591 MOSM/K (50-1400)
[2022-11-27] MEDS: vancomycin inj 500 MG in normal saline 100ml IV soln 100 ML IV SCH (14:10)
[2022-11-27] MEDS ORDERED: BUPIVAcaine/PF 2.5 mg/ml (0.25%) 30ml vial ONE (14:23)
[2022-11-27] MEDS ORDERED: MIDAZolam 1 MG/ML 5ML VIAL ONE (14:57)
[2022-11-27] MEDS ORDERED: fentaNYL/PF 50MCG/1 ML 2ML syringe ONE ×2 (14:57→17:13)
--- NOTE | 2022-11-27 15:52 | NUR ---
Pt to CT scan and then surgery
[2022-11-27] MEDS ORDERED: BUPIVAcaine/PF 2.5 mg/ml (0.25%) 30ml vial IJ ONE (16:10)
[2022-11-27] MEDS ORDERED: rocuronium 10mg/ml inj IV ONE ×2 (17:18)
--- NOTE | 2022-11-27 17:43 | NUR ---
Pt still in surgery
[2022-11-27] MEDS ORDERED: ceFAZolin 1000mg inj ONE ×2 (18:09)
[2022-11-27] MEDS ORDERED: albuterol 2.5 MG/3 ML nebule NEB PRN (18:40)
--- NOTE | 2022-11-27 18:50 | NUR ---
received patient from OR post trache & PEG insertion thru exlap, no bleeding observed on the abdomen. hooked back to threat monitoring analyst, vent hooked by RT
[2022-11-27] MEDS ORDERED: morphine 2 MG/ML inj. syringe IV PRN (19:05)
[2022-11-27] MEDS ORDERED: morphine 4 MG/ML inj SYRINge IV PRN (19:05)
[2022-11-27 19:45] LABS: ABG BASE EXCESS -6.2 mmol/L (-2.0-2.0); ABG HCO3 18.2 mmol/L (22.0-26.0); ABG OXYGEN SATURATION 96.6 % (94-97); ABG PCO2 (T) 30.8 mmHg (35.0-48.0); FCOHb 0.3 % (0.0-3.9); FMetHb 0.1 % (0.0-1.5); FO2Hb 96.2 % (94-97); PATIENT TEMPERATURE 35.9; PEEP 5 cm H2O; RESPIRATORY RATE 16 b/min; TIDAL VOLUME 475 mL; TOTAL HEMOGLOBIN 11.2 G/dl (14.0-17.9)
[2022-11-27 19:52] LABS: BASOPHILS # (AUTO) 0.1 X10'3 (0-0.2); BASOPHILS % (AUTO) 0.2 % (0-1); EOSINOPHILS # (AUTO) 0.4 X10'3 (0-0.9); EOSINOPHILS % (AUTO) 1.4 % (0-6); HEMATOCRIT 30.7 % (42.0-52.0); LYMPHOCYTES # (AUTO) 1.6 X10'3 (1.1-4.8); LYMPHOCYTES % (AUTO) 5.4 % (21-51); MEAN CORPUSCULAR HEMOGLOBIN 29.8 PG (27.0-31.0); MEAN CORPUSCULAR HGB CONC 32.6 g/dL (33.0-36.5); MEAN CORPUSCULAR VOLUME 91.4 FL (78-98); MEAN PLATELET VOLUME 9.4 FL (7.4-10.4); MONOCYTES # (AUTO) 1.3 X10'3 (0-0.9); MONOCYTES % (AUTO) 4.4 % (2-12); NEUTROPHILS % (AUTO) 88.6 % (42-75); PLATELET COUNT 343 X10'3 (140-440); RED BLOOD COUNT 3.36 X10'6 (4.70-6.10); RED CELL DISTRIBUTION WIDTH 14.9 % (11.5-14.5)
[2022-11-27 20:00] LABS: ALBUMIN 2.6 G/DL (3.4-5.0); ANION GAP 17 (8-16); BLOOD UREA NITROGEN 103 MG/DL (7-18); BUN/CREATININE RATIO 29.2 (5.4-32.0); CALCIUM 8.7 MG/DL (8.5-10.1); CHLORIDE 112 MMOL/L (99-107); CREATININE 3.53 MG/DL (0.60-1.10); GLUCOSE 314 MG/DL (70-104); POTASSIUM 3.9 MMOL/L (3.5-5.1); SODIUM 150 MMOL/L (135-145); TOTAL CARBON DIOXIDE 21.2 MMOL/L (24-32); eGFR 17 ML/MIN
[2022-11-27 20:03] LABS: WHITE BLOOD COUNT 29.4 X10'3 (4.5-11.0)
[2022-11-27] MEDS: insulin regular, human U-100 3ml vial - multi-dose SQ SCH (20:46)
[2022-11-27] MEDS: insulin glargine (Lantus) pen - multi-dose SQ SCH (20:47)
[2022-11-27] MEDS ORDERED: normal saline 1000ml 1,000 ML IVB ONE (20:55)
[2022-11-27] MEDS ORDERED: sodium chloride 0.45% 1,000 ML IV SCH (20:55)
--- NOTE | 2022-11-27 21:20 | NUR ---
called Dr. Peters re: low BP, ordered PNSS 1L bolus and .45NS @100cc/hr
[2022-11-27] MEDS ORDERED: NORepinephrine 8mg/ 250ml NS 250 ML IV ONE (21:40)
[2022-11-27] MEDS ORDERED: NORepinephrine 8mg/ 250ml NS 250 ML IV PRN ×2 (21:45→21:55)
--- NOTE | 2022-11-27 21:55 | NUR ---
called Dr. Peters re: low BP, ordered to start levophed
--- NOTE | 2022-11-27 23:37 | NUR ---
ST elevation observed on lead V, pulse was decreasing, gasping observed, called code blue
--- NOTE | 2022-11-28 00:22 | NUR ---
pronounced by Dr Hatch, printed flat line, called family
--- NOTE | 2022-11-28 01:05 | NUR ---
family came in, updated of CPR rendered. calmly accepted their father's . belongings given and service settled
== END 2022-11-28 00:22 | DRG 4 ==
LOC: ER 11:08 → ED HOLD 12:56 → CICU 2S 13:30
PROVIDERS: ADMIT Internal Medicine Critical Care Medicine; ATTEND Internal Medicine Critical Care Medicine
PROC: 5A1955Z Respiratory Ventilation, Greater than 96 Consecutive Hours (ICD-10-PCS; principal; 2022-11-16)
PROC: 0BH17EZ Insertion of Endotracheal Airway into Trachea, Via Natural or Artificial Opening (ICD-10-PCS; 2022-11-16)
PROC: 0B113F4 Bypass Trachea to Cutaneous with Tracheostomy Device, Percutaneous Approach (ICD-10-PCS; 2022-11-27)
PROC: 0DH64UZ Insertion of Feeding Device into Stomach, Percutaneous Endoscopic Approach (ICD-10-PCS; 2022-11-27)
PROC: 5A12012 Performance of Cardiac Output, Single, Manual (ICD-10-PCS; 2022-11-28)
DX: A41.9 Sepsis, unspecified organism (principal); J80 Acute respiratory distress syndrome; R65.21 Severe sepsis with septic shock; N17.0 Acute kidney failure with tubular necrosis; I21.A1 Myocardial infarction type 2; J18.9 Pneumonia, unspecified organism; T82.7XXA Infection and inflammatory reaction due to other cardiac and vascular devices, implants and grafts, initial encounter; I13.0 Hypertensive heart and chronic kidney disease with heart failure and stage 1 through stage 4 chronic kidney disease, or unspecified chronic kidney disease; J44.0 Chronic obstructive pulmonary disease with (acute) lower respiratory infection; I48.20 Chronic atrial fibrillation, unspecified; G93.1 Anoxic brain damage, not elsewhere classified; E87.0 Hyperosmolality and hypernatremia; E66.01 Morbid (severe) obesity due to excess calories; G47.30 Sleep apnea, unspecified; E11.40 Type 2 diabetes mellitus with diabetic neuropathy, unspecified; E87.6 Hypokalemia; E11.22 Type 2 diabetes mellitus with diabetic chronic kidney disease; E78.00 Pure hypercholesterolemia, unspecified; D72.823 Leukemoid reaction; D64.9 Anemia, unspecified; E86.1 Hypovolemia; H57.04 Mydriasis; I25.10 Atherosclerotic heart disease of native coronary artery without angina pectoris; I46.9 Cardiac arrest, cause unspecified; I50.9 Heart failure, unspecified; N18.30 Chronic kidney disease, stage 3 unspecified; Y83.1 Surgical operation with implant of artificial internal device as the cause of abnormal reaction of the patient, or of later complication, without mention of misadventure at the time of the procedure; Z95.0 Presence of cardiac pacemaker; Z22.322 Carrier or suspected carrier of Methicillin resistant Staphylococcus aureus; Z68.33 Body mass index [BMI] 33.0-33.9, adult; Z86.16 Personal history of COVID-19; Z95.5 Presence of coronary angioplasty implant and graft; Z79.899 Other long term (current) drug therapy
CPT/HCPCS: 36415; 36600; 70450; 70490; 71045; 76770; 80048; 80053; 80202; 81001; 82565; 82570; 82800; 82803; 82810; 82948; 83036; 83605; 83735; 83935; 84100; 84132; 84134; 84145; 84156; 84300; 84478; 84484; 85007; 85018; 85025; 85379; 85610; 85730; 87040; 87070; 87077; 87081; 87088; 87186; 87207; 92950; 93005; 93306; 94002; 94003; 94760; 94799; 99291; A4618; A4628; A6213; A6250; A6258; A6402; A6449; A7000; A7015; A7526; A9900; B4087; C9113; G0378; J0171; J0282; J0360; J0690; J1160; J1644; J1815; J1940; J2250; J2270; J2405; J2543; J2597; J2704; J3010; J3370; J3480; J3490; J7030; J7040; J7050; J7070; J7120